=== PATIENT | female | born 1935 | race African-American/Black ===

== ENCOUNTER 2016-08-09 09:59 | Inpatient (IN) ==
[2016-08-09] MEDS ORDERED: PANTOPRAZOLE 40 MG VIAL IV STA (10:30)
[2016-08-09] MEDS ORDERED: SODIUM CHLORIDE 0.9% 500 ML IV STA (10:30)
--- NOTE | 2016-08-09 10:33 | EKG Report ---
Stationary ECG Study [facility] ER Test Date: 08/09/2016 10:15:29 AM Pat Name: FAINA ALONZO Department: Room: Gender: F Pit Inspector: : [id number] Requested by: Laith Gale Order Number: [id number] Reading MD: JOHN OWENS Intervals [place] Rate: 106 P: 67 NC: 169 QRS: -13 QRSD: 83 T: -5 QT: 350 QTc: 412 Interpretive Statements SINUS TACHYCARDIA WITH OCCASIONAL VENTRICULAR PREMATURE COMPLEXES NONSPECIFIC T-WAVE ABNORMALITY ABNORMAL RHYTHM ECG Electronically Signed On 08-09-16 12:25:18 TABLE OPERATOR by JOHN OWENS [email or web address]
[2016-08-09 10:48] LABS: Basophils % 0.9 % (0.0-0.8); Eosinophils % 0.9 % (0.00-10.9); Hematocrit 35.6 VOL% (35.7-47.0); Hemoglobin 10.9 GM/DL (12.0-16.0); Lymphocytes # 1.3 10*3/uL (1.4-4.0); Lymphocytes % 28.8 % (21.3-54.2); Mean Corpuscular HGB Conc 30.6 GM/DL (32-36); Mean Corpuscular Hemoglobin 26 PG (27-34); Mean Corpuscular Volume 86.2 FL (87-102); Mean Platelet Volume 10.8 FL (9.6-12.0); Monocytes # 0.4 10*3/uL (0.11-0.8); Monocytes % 8.2 % (1.7-12.7); Neutrophils # 2.7 10*3/uL (1.4-7.4); Neutrophils % 61.2 % (38.7-73.9); Platelet Count 254 10*3/uL (130-400); Red Blood Count 4.13 10*6/uL (3.8-5.5); Red Cell Distribution Width 13.3 % (9.3-17.3); White Blood Count 4.4 10*3/uL (4.5-13.71)
[2016-08-09] MEDS ORDERED: PANTOPRAZOLE 40 MG VIAL IV ONE (10:51)
--- NOTE | 2016-08-09 11:07 | XRay Report ---
XR abdomen 2V Indication: Abdominal pain. Abdomen 3 views: Left ESTELLA noted. Increased stool is present in the colon, without small bowel dilatation. Vascular calcinosis and degenerative scoliosis of the lumbar spine present. Impression: Mild constipation. No obstruction. PROCEDURE INTERPRETED AT [facility] DEPARTMENT OF RADIOLOGY Final Report Signed by: Jad Arce M.D.
--- NOTE | 2016-08-09 11:08 | XRay Report ---
XR chest 2V Indication: Shortness of breath. Chest 2 views: Biphasic thoracal lumbar scoliosis noted. Heart size is normal. Mediastinal contours unremarkable. No discrete infiltrate shown. Pleural spaces are clear. Degenerative changes of the thoracic spine the lateral view are significant. Impression: No acute cardio pulmonary disease. Degenerative changes and scoliosis of thoracolumbar spine. PROCEDURE INTERPRETED AT [facility] DEPARTMENT OF RADIOLOGY Final Report Signed by: Jad Arce M.D.
--- NOTE | 2016-08-09 11:17 | Emergency Department Note ---
Alex Costello Meredith, am scribing for, and in the presence of, Laith Holland MD 10:25. Amalia Costello Phillip K, MD, personally performed the services described in this documentation, ascribed by Johana Johnson in my presence, and it is both accurate and complete . Arrival - Arrival Chief Complaint: Syncope Stated Complaint: FELL AND PASSED OUT ED Nursing Triage Note: c/o near syncopal episode at approx 0900am. Reports was outside became dizzy and then fell onto ground. c/o mid-abdominal pain after fall. AAO x 3, speech clear. Mode of Arrival: Ambulatory Limitations: No Limitations Source: Patient, Old Records Reviewed, RN Notes Reviewed - History of Present Illness HPI Narrative: Pt is a 80 y/o black female reporting to the ED with c/o near-syncopal episode at approximately 0900. She was outside when she became lightheaded and fell to the ground. Pt states she also had one episode of rectal bleeding this morning. She confirms some mid-abdominal pain. Pt has a history of HTN, NIDDM, hemorrhoids, and ovarian cysts. She takes a low dose ASA daily. Female upper lining cementer was present during rectal exam. Onset (ago): hour(s) Consistency: now resolved Date of Last Menstrual Period: hyst Allergies/Adverse Reactions: Allergies Allergy/AdvReac Type Severity Reaction Status Date / Time No Known Allergies Allergy Verified 08/09/16 10:05 Home Medications: Home Medications Medication Instructions Recorded Confirmed Type Aspirin EC Tab 81 mg PO DAILY 01/21/15 08/09/16 History Losartan/Hydrochlorothiazide 1 each PO DAILY 01/21/15 08/09/16 History [Losartan-Hctz 50-12.5 mg Tab] Multivit-Min/FA/Lycopene/Lut 1 each PO DAILY 01/21/15 08/09/16 History [Centrum Silver Tablet] metFORMIN [Glucophage] 500 mg PO TID 01/21/15 08/09/16 History Review of System - Review of System 12 point system: reviewed and no additional remarkable complaints except as stated - Review of System Cardiovascular: Present: as per HPI, syncope (near-syncope) Gastrointestinal: Present: as per HPI, abdominal pain, other (rectal bleeding ) Medical,Surgical,& Family Hx - Medical History Cardio: History of: Hypertension Neurology: No history of: Seizures HEENT: History of: Eye Problem (GLASSES) Endocrine: History of: Diabetes Mellitus (NIDDM) (METFORMIN) Gastrointestinal: History of: Hemorrhoids Musculoskeletal: History of: Musculoskeletal Problems (RIGHT KNEE) Reproductive: History of: Ovarian Cysts - Surgical History Abdominal Surgeries: Patient denies: Abdominal Surgery, Appendectomy, Cholecystectomy Reproductive Surgeries: Surgical HX of;: Hysterectomy (1984) Orthopedic Surgeries: Surgical HX of;: Total Hip Replacement (LEFT HIP REPLACEMENT), Total Knee Replacement (RIGHT TOTAL KNEE REPLACEMENT) - Family History Family History: Reports;: Family Cancer (2 DAUGHTERS) - Social History Smoking Status: Never smoker Frequency of Alcohol Use: None Type of Drug Use: None Exam Vital Signs: Vital Signs Temperature 97.7 F 08/09/16 10:01 Pulse Rate 102 H 08/09/16 10:01 Respiratory Rate 18 08/09/16 10:20 Blood Pressure 144/101 08/09/16 10:01 O2 Sat by Pulse Oximetry 96 08/09/16 10:01 - General General appearance: alert, in no apparent distress - Head Head exam: Present: atraumatic, normocephalic - Eye Eye exam: Present: normal appearance, PERRL, EOMI - ENT ENT exam: Present: mucous membranes moist, normal external ear exam - Neck Neck exam: Present: full ROM, trachea midline. Absent: tenderness, meningismus , lymphadenopathy, thyromegaly - Chest Chest inspection: Present: symmetric chest wall rise. Absent: tenderness, rash - Respiratory Respiratory exam: Present: normal lung sounds bilaterally. Absent: respiratory distress - Cardiovascular Cardiovascular exam: Present: normal rhythm, tachycardia - Abdominal Exam Abdominal exam: Present: soft, normal bowel sounds. Absent: distention, tenderness - Rectal Exam Rectal exam: Present: heme (+) stool (gross blood on exam), hemorrhoids (one irritated hemorrhoid; blood found up past the hemorrhoid) - Extremities Exam Extremities exam: Present: full ROM, normal capillary refill. Absent: tenderness, pedal edema, calf tenderness - Back Exam Back exam: Present: full ROM. Absent: tenderness - Neurological Exam Neurological exam: Present: alert, oriented X3, CN II-XII intact. Absent: motor sensory deficit - Psychiatric Psychiatric exam: Present: normal affect, normal mood - Skin Skin exam: Present: warm, dry, intact, normal color Course Course Narrative: Discussed with the hospitalist. We will admit for further evaluation and GI consult. Results - Labs CBC & BMP: 08/09/16 10:34 Lab Results: I have reviewed the patients labs Labs: Laboratory Tests 08/09/16 10:34 WBC 4.4 L RBC 4.13 Hgb 10.9 L Hct 35.6 L MCV 86.2 L MCH 26 L MCHC 30.6 L Baso % (Auto) 0.9 H Lymph # (Auto) 1.3 L - EKG EKG results: interpreted by MAREK (sinus tachycardia with occasional PVCs and nonspecific ST-T changes.) - Diagnostic Findings Procedure: Abdominal x-ray: report reviewed by me (Mild constipation. No obstruction. ), Chest x-ray: report reviewed by me (No acute cardiopulmonary disease. Degenerative changes and scoliosis of thoracolumbar spine. ) Disposition Clinical Impression: Near syncope, Lower GI hemorrhage Case discussed with: patient Disposition: Still a Patient Condition: Guarded Additional Instructions: Admitted to the hospitalist.
[2016-08-09 11:18] LABS: Albumin 3.5 G/DL (3.4-5.0); Bilirubin,Total 0.5 MG/DL (0.2-1.0); Calcium 9.4 MG/DL (8.5-10.1); Magnesium 1.9 MG/DL (1.8-2.4); Osmolality,Calculated 298.7 MOS/KG (273-304); Potassium 3.7 MMOL/L (3.5-5.1)
[2016-08-09] MEDS ORDERED: GLUCAGON 1 MG VIAL IM PRN (11:42)
[2016-08-09] MEDS ORDERED: ZALEPLON 5 MG CAPSULE PO PRN (11:42)
[2016-08-09] MEDS ORDERED: DEXTROSE 50% 25 GM/50 ML VIAL IV PRN (11:42)
[2016-08-09] MEDS ORDERED: BISACODYL 5 MG TABLET PO PRN (11:42)
[2016-08-09] MEDS ORDERED: ONDANSETRON 4 MG/2 ML VIAL IV PRN (11:42)
[2016-08-09] MEDS ORDERED: ACETAMINOPHEN 325 MG TABLET PO PRN (11:42)
--- NOTE | 2016-08-09 11:54 | Hospitalist History & Physical ---
Assessment and Plan (1) Lower gastrointestinal hemorrhage Status: Acute Assessment and plan: Painless without formed elements, recurrent at wide intervals Current Visit: Yes (2) Pre-syncope Status: Chronic Assessment and plan: Repetitive upright episodes over several years Current Visit: Yes History of Present Illness History of present illness: Ms. Jackson is a 80 year old female this morning at approximately 05:00 went to bathroom to void. Had flatus, voided and upon standing bright red blood in commode. No stool, clots, no pain. Has history of unevaluated episodes of same most recently in January 2015. 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 She has had similar episodes previously without defined source. No bowel movement since initial this morning. Home Medications Medication Instructions Recorded Confirmed Type Aspirin EC Tab 81 mg PO DAILY 01/21/15 08/09/16 History Losartan/Hydrochlorothiazide 1 each PO DAILY 01/21/15 08/09/16 History [Losartan-Hctz 50-12.5 mg Tab] Multivit-Min/FA/Lycopene/Lut 1 each PO DAILY 01/21/15 08/09/16 History [Centrum Silver Tablet] metFORMIN [Glucophage] 500 mg PO TID 01/21/15 08/09/16 History Allergies Allergy/AdvReac Type Severity Reaction Status Date / Time No Known Allergies Allergy Verified 08/09/16 10:05 Medical,Surgical,& Family Hx - Medical History Cardio: History of: Hypertension (10 years) Neurology: No history of: Seizures HEENT: History of: Eye Problem (GLASSES) Endocrine: History of: Diabetes Mellitus (NIDDM) (10 years) Gastrointestinal: History of: Hemorrhoids Hematology: History of: Anemia (hemoglobin 01/2015 9.2) Reproductive: History of: Ovarian Cysts - Surgical History Abdominal Surgeries: Surgical HX of: Abdominal Surgery, Appendectomy, Cholecystectomy Reproductive Surgeries: Surgical HX of;: Hysterectomy (1984) Orthopedic Surgeries: Surgical HX of;: Total Hip Replacement (LEFT HIP REPLACEMENT), Total Knee Replacement (RIGHT TOTAL KNEE REPLACEMENT) - Family History Family History: Reports;: Family Cancer (2 DAUGHTERS) - Social History Smoking Status: Never smoker Frequency of Alcohol Use: None Type of Drug Use: None - Constitutional Constitutional: Absent: frequent falls, weakness - Cardiovascular Cardiovascular: Present: lightheadedness. Absent: chest pain with activity, claudication, edema, palpitations - Respiratory Respiratory: Absent: dyspnea, wheezing - Gastrointestinal Gastrointestinal: Present: hematochezia. Absent: abdominal pain, change in bowel habits, constipation, dysphagia, heartburn, melena, nausea - Genitourinary Genitourinary: Absent: difficulty urinating, hematuria - Musculoskeletal Musculoskeletal: Present: muscle cramps - Neurological Neurological: Present: syncope (recurrent near syncopal episodes) Exam - Constitutional Vitals: Period Temp Pulse Resp BP Sys/Carlton Pulse Ox Last 24 Hr 97.7 F 102 18-18 144/101 96 General appearance: normal weight - Head Head exam: Present: normal inspection - Neck Neck exam: Absent: lymphadenopathy, thyromegaly - Respiratory Respiratory exam: Present: clear to auscultation bilaterally. Absent: rales, rhonchi, wheezes - Cardiovascular Cardiovascular exam: Present: irregular rhythm (VPC), other (low frequency carotid and femoral bruits with decreased left lower leg pulses) - GI/Abdominal GI/Abdominal exam: Present: normal bowel sounds. Absent: organomegaly, tenderness - Extremities Exam Extremities exam: Absent: edema - Neurological Exam Neurological exam: Present: alert, oriented X3 - Psychiatric Psychiatric exam: Present: normal affect, normal mood Results - Labs CBC & BMP: 08/09/16 10:34 08/09/16 10:34 - Impressions Sinus with VPC clockwise precordial rotation - Diagnostic Findings Procedure: Chest x-ray: image reviewed by me (scoliosis, clear lung wilson), KUB x-ray: image reviewed by me (negative) Quality Measures - VTE Contraindication to Pharmacological VTE Prophylaxis: Active Bleeding
[2016-08-09] MEDS ORDERED: INFLUENZA VIRUS VACCINE 0.5 ML SYRINGE IM ONE (13:46)
[2016-08-09] MEDS ORDERED: PNEUMOCOCCAL VACCINE (13 VALENT) 0.5 ML SYRINGE IM ONE (13:50)
[2016-08-09] MEDS: LOSARTAN 50 MG TABLET PO SCH (15:06)
[2016-08-09] MEDS: PANTOPRAZOLE 40 MG TABLET PO SCH (15:06)
[2016-08-09] MEDS: LACTATED RINGERS 1,000 ML IV SCH (15:06)
--- NOTE | 2016-08-09 17:43 | Gastrointestinal Consult Note ---
Assessment and Plan (1) Lower gastrointestinal hemorrhage Status: Acute Assessment and plan: This patient likely has a diverticular bleed versus hemorrhoidal bleeding. Her hematocrit has only dropped down to 35% but it appears that it will continue to drift downward. I doubt ischemic colitis as patient did not have a requisite amount of cramping usually associated with this etiology. Unfortunately cancers still in the differential and she has a daughter with history of same and she has never been evaluated with colonoscopy up to this point. She will need to be flushed out appropriately before we can evaluate her for this cancer/ diverticular bleeding. She will may be on a clear liquid diet tomorrow with MiraLAX prep. We'll continue watching her hematocrit over time. She really does not have any upper symptoms at this time but if we do not find any significant findings on colonoscopy with might consider doing a upper endoscopy to look for tisha ulcerations or bleeding source. Current Visit: Yes (2) Anemia, posthemorrhagic, acute Status: Acute Assessment and plan: As mentioned above over continue to watch the patient's CBC for hematocrit drift and I will plan on transfusing her if her hematocrit drops below 24%. Currently she is a 35%. Parameters written. Risks of the endoscopy were reviewed with the patient and include but aren't limited to: Bleeding, infection , perforation, cardiac and pulmonary compromise. Current Visit: Yes History of Present Illness Chief complaint: lower GI bleed with near syncope History of present illness: Ms. Jackson is a 80 year old female who has a daughter who has a history of colon cancer but has never had colonoscopy herself. She presents early this morning with voluminous rectal bleeding which she describes as maroon red, no particular cramping associated with this and no fevers or chills. 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 She did not completely fainted during that episode. She did not hit anybody parts. She does not have any abdominal pain, she had a previous episode of this occurring back in January 2015. She has not had upper endoscopy. She uses occasional Aleve to help out with her abdominal pain/joint pains. She does not have any reflux nausea or vomiting. She has eaten all today and therefore cannot be prepped for colonoscopy tomorrow. Home Medications Medication Instructions Recorded Confirmed Type Aspirin EC Tab 81 mg PO DAILY 07/01/15 01/17/17 History Losartan/Hydrochlorothiazide 1 each PO DAILY 01/21/15 08/09/16 History [Losartan-Hctz 50-12.5 mg Tab] Multivit-Min/FA/Lycopene/Lut 1 each PO DAILY 01/21/15 08/09/16 History [Centrum Silver Tablet] metFORMIN [Glucophage] 500 mg PO TID 01/21/15 08/09/16 History Allergies Allergy/AdvReac Type Severity Reaction Status Date / Time No Known Allergies Allergy Verified 08/09/16 10:05 Medical,Surgical,& Family Hx - Medical History Cardio: History of: Hypertension (10 years) Neurology: No history of: Seizures HEENT: History of: Eye Problem (GLASSES) Endocrine: History of: Diabetes Mellitus (NIDDM) (10 years) Gastrointestinal: History of: Hemorrhoids Musculoskeletal: History of: Musculoskeletal Problems (RIGHT KNEE) Hematology: History of: Anemia (hemoglobin 01/2015 9.2) Reproductive: History of: Ovarian Cysts - Surgical History Abdominal Surgeries: Patient denies: Abdominal Surgery, Appendectomy, Cholecystectomy Reproductive Surgeries: Surgical HX of;: Hysterectomy (1984) Orthopedic Surgeries: Surgical HX of;: Total Hip Replacement (LEFT HIP REPLACEMENT), Total Knee Replacement (RIGHT TOTAL KNEE REPLACEMENT) - Family History Family History: Reports;: Family Cancer (2 DAUGHTERS) - Social History Smoking Status: Never smoker Frequency of Alcohol Use: None Type of Drug Use: None Review of systems: Constitutional: Denies fever, chills, nausea, and vomiting Eyes: Denies dry eyes, and scleral icterus HENT: Denies headaches Cardiovascular: Denies acute chest pain and claudication Respiratory: Denies shortness of breath, wheezing, and difficulty breathing, denies cough Gastrointestinal: As noted in the HPI Genitourinary: Denies dysuria and hematuria Neurologic: Denies vision loss, and loss of sensation Musculoskeletal: Denies joint swelling, joint stiffness, and muscular weakness Psychiatric: Denies depression and barb symptoms Heme-Lymph: Denies easy bruising, lymph node enlargement or tenderness, night sweats, excessive bleeding Allergies-immunologic: Denies pruritus and rhinorrhea Exam - Constitutional Vitals: Period Temp Pulse Resp BP Sys/Carlton Pulse Ox Last 24 Hr 96.6 F-98.3 F 86-89 18-20 137-168/79-85 97-100 Exam: Constitutional: Well-developed, well-nourished, alert, and in no acute distress Head and face: Head: Normocephalic atraumatic Eyes: Conjunctiva without injection, no gross scleral icterus, pupils equal and round bilaterally Ears: Intact to conversation in both ears Nose: External appearance is normal, nares patent Mouth: Oral mucous membranes moist without erythema dentition noted to be without erosion Neck: Normal appearance, no masses or tenderness, trachea midline Thyroid: Gland midline and appropriate size for age Respiratory: Normal respiratory effort, clear to auscultation without wheezes, rhonchi or rales Cardiovascular: Regular rate and rhythm, normal S1, S2, the exam is without rubs, murmurs or gallops. Gastrointestinal: Nontender to palpation, normal active bowel sounds, tone normal without rigidity or guarding, no masses present, no hepatomegaly, no spleen tip felt. Stool demonstrates grossly maroon stool which was guaiac positive. Lymphatic: Neck without adenopathy, axilla without lymphadenopathy present Musculoskeletal: Right and left lower extremities without evidence of edema Skin and subcutaneous tissue: No rashes or ulcerations noted, normal skin turgor, digits and nails without clubbing/cyanosis/deformities. Neurologic: The patient is grossly oriented to person place and time, cranial nerves show tongue movements are normal with normal tongue extrusion midline, light touch sensation is intact. Psychiatric: No hallucinations or delusions are present, does not appear depressed Results - Labs CBC & BMP: 08/09/16 13:23 08/09/16 10:34 Quality Measures - VTE Contraindication to Pharmacological VTE Prophylaxis: Active Bleeding
[2016-08-09] MEDS ORDERED: SODIUM CHLORIDE 0.9% 250 ML IV PRN (17:50)
[2016-08-09] MEDS: INSULIN REGULAR 100 UNIT/ML SUBCUT SCH ×2 (18:44→20:31)
[2016-08-09 18:52] LABS: Hematocrit 29.8 VOL% (35.7-47.0); Hemoglobin 9.2 GM/DL (12.0-16.0)
[2016-08-10] MEDS: LACTATED RINGERS 1,000 ML IV SCH ×2 (04:51→20:33)
[2016-08-10 04:55] LABS: Basophils % 0.8 % (0.0-0.8); Eosinophils # 0.2 10*3/uL (0.0-0.87); Eosinophils % 3.3 % (0.00-10.9); Hematocrit 27.6 VOL% (35.7-47.0); Hemoglobin 8.3 GM/DL (12.0-16.0); Immature Granulocytes % 0.2 %; Immature Granulocytes Absolute 0.01 #; Lymphocytes # 2.2 10*3/uL (1.4-4.0); Lymphocytes % 44.9 % (21.3-54.2); Mean Corpuscular HGB Conc 30.1 GM/DL (32-36); Mean Corpuscular Hemoglobin 26 PG (27-34); Mean Corpuscular Volume 85.2 FL (87-102); Mean Platelet Volume 11.6 FL (9.6-12.0); Monocytes # 0.5 10*3/uL (0.11-0.8); Monocytes % 10.2 % (1.7-12.7); Neutrophils % 40.6 % (38.7-73.9); Platelet Count 207 10*3/uL (130-400); Red Blood Count 3.24 10*6/uL (3.8-5.5); Red Cell Distribution Width 13.5 % (9.3-17.3); White Blood Count 4.9 10*3/uL (4.5-13.71)
[2016-08-10 05:32] LABS: Calcium 7.2 MG/DL (8.5-10.1); Osmolality,Calculated 300.9 MOS/KG (273-304); Potassium 3.6 MMOL/L (3.5-5.1)
[2016-08-10 06:40] LABS: Apearance,Urine Slightly Hazy (Clear); Bilirubin,Urine Negative (Negative); Blood, Urine Negative (Negative); Glucose,Urine (UA) Negative (Negative); Hyaline Casts,Urine 1 /LPF (0-3); Ketones,Urine Negative (Negative); Mucus,Urine Few /LPF (Occasional); Nitrite,Urine Negative (Negative); Protein,Urine Negative; RBC,Urine <1 /HPF (0-4); Squamous Epithelial Cell,Urine Occasional /HPF (0-10); Urine Color Yellow (Yellow); Urine Specific Gravity 1.024 (1.001-1.035); Urine Urobilinogen < 2.0 EU/DL (0.2-1.0); WBC,Urine 2 /HPF (0-6)
--- NOTE | 2016-08-10 06:45 | Hospitalist Progress Note ---
Assessment and Plan (1) Lower gastrointestinal hemorrhage Status: Acute Assessment and plan: Painless without formed elements, recurrent at wide intervals Current Visit: Yes (2) Pre-syncope Status: Chronic Assessment and plan: Repetitive upright episodes over several years Current Visit: Yes Hospitalist: Subjective Interval history: 80 yo female chronic widely distributed episodes of painless hematochezia with episode yesterday. Also history of separate episodes of near syncope with isolated VPC at admission. Single bowel movement since admission, formed with small amount of blood. Vitals stable overnight with gradual fall in hemoglobin overnight. Rhythm sinus throughout. Exam - Constitutional Vitals: Period Temp Pulse Resp BP Sys/Carlton Pulse Ox Last 24 Hr 96.6 F-100.1 F 65-89 18-20 137-179/71-85 96-100 General appearance: normal weight - Respiratory Respiratory exam: Present: clear to auscultation bilaterally. Absent: rales, rhonchi, wheezes - Cardiovascular Cardiovascular exam: Present: regular rate and rhythm - GI/Abdominal GI/Abdominal exam: Present: normal bowel sounds. Absent: distended, tenderness - Extremities Exam Extremities exam: Absent: edema - Neurological Exam Neurological exam: Present: alert, oriented X3 Results - Labs CBC & BMP: 08/10/16 03:51 08/10/16 03:51 Quality Measures - VTE Contraindication to Pharmacological VTE Prophylaxis: Active Bleeding
[2016-08-10 07:14] LABS: % Iron Saturation 55.3 % (18-50)
[2016-08-10] MEDS: BISACODYL 5 MG TABLET PO SCH ×3 (09:26→22:33)
[2016-08-10] MEDS: PANTOPRAZOLE 40 MG TABLET PO SCH (09:27)
[2016-08-10] MEDS: LOSARTAN 50 MG TABLET PO SCH (09:27)
[2016-08-10] MEDS: INSULIN REGULAR 100 UNIT/ML SUBCUT SCH ×4 (09:32→20:26)
--- NOTE | 2016-08-10 15:29 | Gastrointestinal Progress Note ---
Assessment and Plan (1) Lower gastrointestinal hemorrhage Status: Acute Assessment and plan: This patient likely has a diverticular bleed versus hemorrhoidal bleeding. Her hematocrit has only dropped down to 35% but it appears that it will continue to drift downward. I doubt ischemic colitis as patient did not have a requisite amount of cramping usually associated with this etiology. Unfortunately cancer is still in the differential and she has a daughter with history of same and she has never been evaluated with colonoscopy up to this point. She will need to be flushed out appropriately before we can evaluate her for this cancer/ diverticular bleeding. She will may be on a clear liquid diet tomorrow with MiraLAX prep. We'll continue watching her hematocrit over time. She really does not have any upper symptoms at this time but if we do not find any significant findings on colonoscopy with might consider doing a upper endoscopy to look for tisha ulcerations or bleeding source. 08/10/16-- Awaiting colonoscopy tomorrow, currently on clears, about to start prep in near future. HCT 35-->29.8 --> 27.6% most recently. Suspect diverticular source. Current Visit: Yes (2) Anemia, posthemorrhagic, acute Status: Acute Assessment and plan: As mentioned above over continue to watch the patient's CBC for hematocrit drift and I will plan on transfusing her if her hematocrit drops below 24%. Currently she is a 35%. Parameters written. Risks of the endoscopy were reviewed with the patient and include but aren't limited to: Bleeding, infection , perforation, cardiac and pulmonary compromise. 08/10/16-- The patient is getting closer to our transfusion parameters. Will plan to start transfusion if HCT < or = to 24%. Await colo results tomorrow. Current Visit: Yes Gastroenterology - PN: Subj Interval history: Taking clears without difficulty, due to get colonoscopy tomorrow. Exam (Progress Note) - Constitutional Vitals: Period Temp Pulse Resp BP Sys/Carlton Pulse Ox Last 24 Hr 97.8 F-100.1 F 65-86 20-20 140-179/71-85 95-98 General appearance: no acute distress - Head Head exam: Present: normocephalic - Eye Eye exam: Present: EOMI - Respiratory Respiratory exam: Present: clear to auscultation bilaterally - Cardiovascular Cardiovascular exam: Present: regular rate and rhythm. Absent: rubs - GI/Abdominal GI/Abdominal exam: Present: normal bowel sounds, soft. Absent: distended, guarding, tenderness, rebound - Extremities Exam Extremities exam: Absent: edema - Neurological Exam Neurological exam: Present: alert, oriented X3, CN II-XII intact. Absent: motor sensory deficit - Psychiatric Psychiatric exam: Present: normal affect, normal mood - Skin Skin exam: Present: warm Results - Labs CBC & BMP: 08/10/16 03:51 08/10/16 03:51
[2016-08-10] MEDS ORDERED: POLYETHYLENE GLYCOL POWDER 255 GM BOTTLE PO ONE (18:00)
[2016-08-10 18:06] LABS: Hemoglobin 9.4 GM/DL (12.0-16.0)
[2016-08-10] MEDS ORDERED: MAGNESIUM CITRATE 300 ML BOTTLE PO ONE (21:00)
[2016-08-11 05:10] LABS: Hematocrit 31.9 VOL% (35.7-47.0); Hemoglobin 9.7 GM/DL (12.0-16.0)
[2016-08-11 05:23] LABS: Basophils % 0.4 % (0.0-0.8); Eosinophils # 0.2 10*3/uL (0.0-0.87); Eosinophils % 3.4 % (0.00-10.9); Hematocrit 31.7 VOL% (35.7-47.0); Hemoglobin 9.7 GM/DL (12.0-16.0); Immature Granulocytes % 0.2 %; Immature Granulocytes Absolute 0.01 #; Lymphocytes # 2.1 10*3/uL (1.4-4.0); Lymphocytes % 37.1 % (21.3-54.2); Mean Corpuscular HGB Conc 30.6 GM/DL (32-36); Mean Corpuscular Hemoglobin 26 PG (27-34); Mean Corpuscular Volume 84.8 FL (87-102); Mean Platelet Volume 11.3 FL (9.6-12.0); Monocytes # 0.6 10*3/uL (0.11-0.8); Monocytes % 10.1 % (1.7-12.7); Neutrophils # 2.7 10*3/uL (1.4-7.4); Neutrophils % 48.8 % (38.7-73.9); Platelet Count 240 10*3/uL (130-400); Red Blood Count 3.74 10*6/uL (3.8-5.5); Red Cell Distribution Width 13.5 % (9.3-17.3); White Blood Count 5.6 10*3/uL (4.5-13.71)
--- NOTE | 2016-08-11 07:17 | Hospitalist Progress Note ---
Assessment and Plan (1) Lower gastrointestinal hemorrhage Status: Acute Assessment and plan: Painless without formed elements, recurrent at wide intervals Current Visit: Yes (2) Pre-syncope Status: Chronic Assessment and plan: Repetitive upright episodes over several years, documentation last evening of asymptomatic rapid atrial tachycardia. Current Visit: Yes Hospitalist: Subjective Interval history: 80 yo female history of painless hematochezia with recurrence at this admission. Also reported episodes of lightheadedness never evaluated and separate from bleeding episodes. Last evening episodes of rapid atrial tachycardia without symptoms. No blood noted during colonoscopy prep last evening. Hemoglobin stable. Exam - Constitutional Vitals: Period Temp Pulse Resp BP Sys/Carlton Pulse Ox Last 24 Hr 97.4 F-98.9 F 56-91 16-20 140-181/72-89 93-98 General appearance: normal weight - Respiratory Respiratory exam: Present: clear to auscultation bilaterally. Absent: rales, rhonchi, wheezes - GI/Abdominal GI/Abdominal exam: Present: normal bowel sounds. Absent: tenderness - Neurological Exam Neurological exam: Present: alert, oriented X3 Results - Labs CBC & BMP: 08/11/16 04:19 08/10/16 03:51 Quality Measures - VTE Contraindication to Pharmacological VTE Prophylaxis: Active Bleeding
[2016-08-11] MEDS ORDERED: LIDOCAINE 2% 5 ML VIAL ONE (08:41)
[2016-08-11] MEDS ORDERED: PROPOFOL 200 MG/20 ML VIAL IV ONE (08:41)
--- NOTE | 2016-08-11 09:00 | Operative Note ---
Date of procedure: 08/11/16 Pre-op diagnosis: lower GI bleed and anemia Post-op diagnosis: other (I strong suspect this patient had a diverticular bleed from the right colon, if further bleeding occurs we can consider doing upper endoscopy in addition. If the patient returns again acutely would strongly suggest getting a tagged red blood cell scan to see if the bleeding can be localized one area. The patient demonstrated some tachycardia during the procedure consistent with SVT, cardiac consultation may be helpful.) Procedure: PROCEDURE: Colonoscopy REFERRING PHYSICIAN: Gordo De La Cruz M.D. INDICATIONS: Anemia with hematocrit of 31% and lower GI bleeding of unclear source. Rule out cancer. The prior H&P was reviewed and interrim changes are as noted: No change for GI consultation yesterday ENDOSCOPIST: Giovany Maldonado MD ENDOSCOPE: [employer] Video 100 System colonoscope COLON PREPARATION: 238 gm of PEG containing laxative and 1.9 liters of gatoraid/sports drink and dulcolax 15 mg q8 hours x 3 ASA CLASS: 3 EXAM: CV: regular rate and rhythm Respiratory: Clear without wheezes Abdominal: active bowel sounds Rectal: Good tone, no fissures or fistulas MEDICATION: Per nursing anesthesia protocol, see their notes PROCEDURE: After discussion of the potential risks and benefits of colonoscopy, the informed consent was obtained, from patient or health care surrogate. The patient was then placed in the left lateral decubitus position where sedation was achieved as noted above. Rectal examination was followed by insertion of the colonoscope. The colonoscope was passed under direct visualization to the cecum. Advancement was facilitated by insertion/withdrawl techniques, abdominal pressure and patient positioning. Once the cecal pole was reached, slow withdrawal was performed with the findings as noted below. The patient tolerated the procedure well and without complication. QUALITY OF PREP: Excellent WITHDRAWL TIME: 7 minutes 45 seconds BIOPSIES: Not obtained PHOTOGRAPHS: Obtained FINDINGS: The musoca appeared normal in the following regions: rectum, sigmoid colon, descending colon, splenic flexure, transverse colon, hepatic flexure, ascending colon and cecum. Position within the cecum was confirmed by ileocecal valve, appendiceal oriface, and the convergence of folds (crows foot) . No colitis, polyp, mass or AVM was noted throughout the colon. Heavy moore- diverticulosis noted, this was most severe in the right colon. Intubation of the TI was achieved x 5 cm with normal appearence IMPRESSION: I strong suspect this patient had a diverticular bleed from the right colon, if further bleeding occurs we can consider doing upper endoscopy in addition. If the patient returns again acutely would strongly suggest getting a tagged red blood cell scan to see if the bleeding can be localized one area. The patient demonstrated some tachycardia during the procedure consistent with SVT, cardiac consultation may be helpful. RECOMMENDATIONS: High fiber diet Repeat colonosocopy in 10 years given the lack of polyps and cancer. Citrucel 1 tablespoon in 12 oz juice BID: 1 bottle: :11 SVT noted during the procedure, cardiac consultation may be helpful for this patient given her arrhythmia history Follow up by phone for biopsy results in 1-2 weeks by phone If further bleeding occurs with suggest upper endoscopy. Giovany Maldonado MD COPY TO: Gordo De La Cruz M.D. Anesthesia: MAC Surgeon / Physician: Giovany Maldonado Estimated blood loss: minimal Specimens: none sent Condition: stable Disposition: post procedure unit ([facility]) Results - Labs CBC & BMP: 08/11/16 04:19 08/10/16 03:51 Discharge Plan - Discharge Medications No Action Losartan/Hydrochlorothiazide [Losartan-Hctz 50-12.5 mg Tab] 1 each PO DAILY metFORMIN [Glucophage] 500 mg PO TID Aspirin EC Tab 81 mg PO DAILY Multivit-Min/FA/Lycopene/Lut [Centrum Silver Tablet] 1 each PO DAILY - Follow Up or Referral - Forms/Instructions
--- NOTE | 2016-08-11 09:04 | Gastrointestinal Progress Note ---
Assessment and Plan (1) Lower gastrointestinal hemorrhage Status: Acute Assessment and plan: This patient likely has a diverticular bleed versus hemorrhoidal bleeding. Her hematocrit has only dropped down to 35% but it appears that it will continue to drift downward. I doubt ischemic colitis as patient did not have a requisite amount of cramping usually associated with this etiology. Unfortunately cancer is still in the differential and she has a daughter with history of same and she has never been evaluated with colonoscopy up to this point. She will need to be flushed out appropriately before we can evaluate her for this cancer/ diverticular bleeding. She will may be on a clear liquid diet tomorrow with MiraLAX prep. We'll continue watching her hematocrit over time. She really does not have any upper symptoms at this time but if we do not find any significant findings on colonoscopy with might consider doing a upper endoscopy to look for tisha ulcerations or bleeding source. 08/10/16-- Awaiting colonoscopy tomorrow, currently on clears, about to start prep in near future. HCT 35-->29.8 --> 27.6% most recently. Suspect diverticular source. 08/11/16--the patient had her colonoscopy this morning and her hematocrit appears stable without transfusion now up to 31%.: Findings were as follows: I strong suspect this patient had a diverticular bleed from the right colon, if further bleeding occurs we can consider doing upper endoscopy in addition. If the patient returns again acutely would strongly suggest getting a tagged red blood cell scan to see if the bleeding can be localized one area. The patient demonstrated some tachycardia during the procedure consistent with SVT, cardiac consultation may be helpful. packaging tech also describes arrhythmias over the evening times-- patient by report appeared normal on nursing check. Current Visit: Yes (2) Anemia, posthemorrhagic, acute Status: Acute Assessment and plan: As mentioned above over continue to watch the patient's CBC for hematocrit drift and I will plan on transfusing her if her hematocrit drops below 24%. Currently she is a 35%. Parameters written. Risks of the endoscopy were reviewed with the patient and include but aren't limited to: Bleeding, infection , perforation, cardiac and pulmonary compromise. 08/10/16-- The patient is getting closer to our transfusion parameters. Will plan to start transfusion if HCT < or = to 24%. Await colo results tomorrow. 08/11/16--no ongoing bleeding demonstrated on colonoscopy, the patient did not require transfusion, she is stable at this point he can be discharged from the hospital if she tolerates a cardiac diet and does not need further Cardiologic workup. Current Visit: Yes Gastroenterology - PN: Subj Interval history: Further bleeding with bowel prep. Hematocrit 31% this morning and is stable. Exam (Progress Note) - Constitutional Vitals: Period Temp Pulse Resp BP Sys/Carlton Pulse Ox Last 24 Hr 97.4 F-98.9 F 56-91 16-20 140-181/72-89 93-98 General appearance: no acute distress - Eye Eye exam: Present: EOMI - Respiratory Respiratory exam: Present: clear to auscultation bilaterally - Cardiovascular Cardiovascular exam: Present: regular rate and rhythm - GI/Abdominal GI/Abdominal exam: Present: normal bowel sounds, soft. Absent: distended, guarding, tenderness, rebound - Neurological Exam Neurological exam: Present: alert, oriented X3 - Psychiatric Psychiatric exam: Present: normal affect, normal mood - Skin Skin exam: Present: warm Results - Labs CBC & BMP: 08/11/16 04:19 08/10/16 03:51
[2016-08-11] MEDS: INSULIN REGULAR 100 UNIT/ML SUBCUT SCH ×4 (10:14→21:54)
[2016-08-11] MEDS: PANTOPRAZOLE 40 MG TABLET PO SCH (10:24)
[2016-08-11] MEDS: LOSARTAN 50 MG TABLET PO SCH (10:25)
[2016-08-11] MEDS: LACTATED RINGERS 1,000 ML IV SCH (16:46)
--- NOTE | 2016-08-11 17:27 | Cardiology Consult Note ---
Parker Costello Vanessa, RN, am scribing for, and in the presence of, Miguel Angel Vasquez MD 17:26. Assessment and Plan - Time spent with patient Time spent with patient: Greater than 30 minutes (due to assessment, planning, documentation) (1) Atrial arrhythmia Status: Acute Assessment and plan: 1. 80-year-old moderately overweight BF with history of hypertension, diabetes , who presented with some bright red blood per rectum status post scope today showing diverticulosis; she is not had any further bleeding this afternoon. She 's had a couple of episodes of short tachycardia, most consistent with paroxysmal atrial fibrillation with aberrancy, with rate over 150 BPM 2. No history of TIA stroke or presyncope; she did have one modest episode of orthostasis in the last several days, no symptoms associated with her documented runs on telemetry oh (less than 10 seconds) 3. Check echocardiogram in the morning to evaluate for structural heart disease 4. Check TSH as well as electrolytes in the morning 5. Start low-dose beta maryam Toprol 25 mg once twice a day Current Visit: Yes (2) Pre-syncope Status: Chronic Current Visit: Yes (3) Diabetes mellitus type 2 in nonobese Status: Acute Current Visit: No (4) Hypertension Status: Acute Current Visit: No (5) Arthritis Status: Chronic Current Visit: No History of Present Illness - Data of Consult Patient: new to practice Consult date: 08/11/16 Requesting Physician: Gordo De La Cruz - Consult Narrative Reason for consult: atrial arrhythmia History of present illness: Ms. 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 PMHx includes anemia, HTN, NIDDM, hemorrhoids, and ovarian cysts. Denies any past cardiac history. She presented to the ER on 08/09/16 after experiencing an episode of bright red rectal bleeding that morning and later in the day, a near syncopal episode with mid abdominal pain also. Per patient report, she has had intermittent episodes of this before dating back to January 2015, but she has never sought out evaluation or treatment. Diagnostic workup in ER included XR of ABD, CXR, lab work, and EKG. ABD x-ray in ER revealed mild constipation with no obstruction. CXR negative for acute processes. EKG revealed sinus tachycardia, rate around 105 bpm with occasional PVC without ST segment changes. Labs revealed initial H/H of 10.9 & 35.6. Patient was admitted to telemetry for further observation and evaluation After admission, GI was consulted, and with downtrend of HCT to ultimately 27, patient had diagnostic colonoscopy this morning. Per Dr. Maldonado's note, diverticular bleed from right colon suspected. Endoscopy recommended for further bleeding and for acute lower GI bleed, tagged red blood cell scan. Apparently, during this procedure, patient had some tachy arrhythmia felt to be SVT. Cardiology is now consulted for evaluation. Upon further tele review, patient also experienced arrhythmia yesterday evening while she was using bathroom and again while she asleep last night. Rhythm strips reveal narrow complex tachycardia with rate around 140 bpm. Appears to be paroxysmal atrial tach. One strip suspicious for atrial fib. During these episodes, patient denies any associated symptoms such as palpitation, dizziness, lightheadedness, shortness of breath, chest discomfort, or other. Patient and family at bedside deny any history or knowledge of patient having abnormal rhythm. At time of exam , patient is pleasant and talkative. Denies any current discomfort or anginal complaint. Skin warm, dry. Denies PND, orthopnea, LE swelling, or hx of ML. CC: Gordo De La Cruz MD - Home Medications and Allergies Home Medications: Home Medications Medication Instructions Recorded Confirmed Type Aspirin EC Tab 81 mg PO DAILY 01/21/15 08/09/16 History Losartan/Hydrochlorothiazide 1 each PO DAILY 01/21/15 08/09/16 History [Losartan-Hctz 50-12.5 mg Tab] Multivit-Min/FA/Lycopene/Lut 1 each PO DAILY 01/21/15 08/09/16 History [Centrum Silver Tablet] metFORMIN [Glucophage] 500 mg PO TID 01/21/15 08/09/16 History Allergies/Adverse Reactions: Allergies Allergy/AdvReac Type Severity Reaction Status Date / Time No Known Allergies Allergy Verified 08/09/16 10:05 - Constitutional Constitutional: Present: fatigue. Absent: chills, daytime sleepiness, excessive sweating, fever(s), frequent falls, lethargy, stops breathing during sleep, weakness, weight gain, weight loss - EENT Eyes: Present: requires corrective lense. Absent: blurry vision Ears: Absent: decreased hearing, ear pain Nose, mouth and throat: Absent: dysphagia, epistaxis, nasal congestion, neck pain, sore throat, throat swelling, tongue swelling, vertigo - Cardiovascular Cardiovascular: Absent: chest pain at rest, chest pain with activity, claudication, diaphoresis, dyspnea, dyspnea on exertion, edema, radiating jaw, neck or arm pain, lightheadedness, orthopnea, palpitations, PND - Respiratory Respiratory: Absent: cough, dyspnea, hemoptysis, dyspnea on exertion, wheezing, snoring, pain on inspiration, change in phlegm color - Gastrointestinal Gastrointestinal: Absent: abdominal pain, cramping, dysphagia, heartburn, hematochezia, melena, nausea, vomiting, jaundice - Genitourinary Genitourinary: Absent: abnormal vaginal bleeding, difficulty urinating, flank pain, hematuria, urinary frequency - Musculoskeletal Musculoskeletal: Absent: myalgias - Neurological Neurological: Absent: abnormal speech, confusion, dizziness, frequent falls, tremor(s) - Psychiatric Psychiatric: Absent: anxiety, confusion, depression - Endocrine Endocrine: Absent: cold intolerance, heat intolerance - Hematologic/Lymphatic Hematologic/Lymphatic: Absent: easy bleeding, easy bruising Medical,Surgical,& Family Hx - Medical History Cardio: History of: Hypertension No history of: Cardiac Dysrhythmia, Cerebrovascular Disease, Congenital Heart Disease, CHF, ND, Pacemaker, Valvular Heart Disease Psychological: No history of: Anxiety Disorders, Depression Neurology: No history of: Cerebral Hemorrhage, Cerebrovascular Accident, Dementia, Migraine, Peripheral Neuropathy, Seizures, TIA, Vertigo HEENT: History of: Eye Problem (requires corrective lense) Endocrine: History of: Diabetes Mellitus (NIDDM) Rheumatology: No history of;: Fibromyalgia, Gout, Myasthenia Gravis Respiratory: No history of: Asthma, Bronchitis, COPD, Intubation, Obstructive Sleep Apnea , Pulmonary Embolism, Pulmonary Hypertension, Pneumonia, Lung Cancer Renal: No history of: Dialysis, Renal Failure Genitourinary: No history of: Recurring Urinary Tract Infections, Genitourinary Cancer Gastrointestinal: History of: Gastrointestinal Bleed, Hemorrhoids, Hematochezia No history of: Crohn's Disease, GERD, Hepatitis, Liver Problems, Ulcerative Colitis, Gastrointestinal Cancer Musculoskeletal: History of: Musculoskeletal Problems No history of: Amputation, Degenerative Disk Disease Hematology: History of: Anemia No history of: Blood Transfusion Reaction, Sickle Cell Disease Reproductive: History of: Ovarian Cysts Other: No history of: Cancer, HIV - Surgical History Cardiac Surgeries: Patient Denies: Cardiac Catheterization, Cardiac Surgery, Carotid Endarterectomy, Internal Defibrillator HEENT Surgeries: Patient denies: Carotid Endarterectomy, Thyroid Surgery, Tonsilectomy & Adenoidectomy Abdominal Surgeries: Surgical HX of: Colonoscopy Patient denies: Abdominal Surgery, Appendectomy, Cholecystectomy Reproductive Surgeries: Surgical HX of;: Hysterectomy (1984) Orthopedic Surgeries: Surgical HX of;: Total Hip Replacement (left hip), Total Knee Replacement (right knee) - Family History Family History: Reports;: Family Cancer (2 DAUGHTERS), Family Diabetes, Family Heart Disease, Family Hypertension - Social History Smoking Status: Never smoker Frequency of Alcohol Use: None Type of Drug Use: None Marital Status: Lives With:: Spouse (and grandson) Functional capacity: uses cane/walker (per patient report, "only every now and then") Physical Examination Vital Signs Temp Pulse Resp BP Pulse Ox 97.7 F 102 H 18 144/101 96 08/09/16 10:01 08/09/16 10:01 08/09/16 10:01 08/09/16 10:01 08/09/16 10:01 General: Present: No Apparent Distress HEENT: Present: Normocephaly, Mucus Membranes Moist. Absent: Jaundice, Pallor, Oral Lesions Neck: Present: Supple Neck, Midline Trachea, No JVD/HJR, No Masses, No Bruit, No Lymphadenopathy Cardiac: Present: Reg Rate and Rhythm. Absent: Audible Murmur, Bradycardia Lungs: Present: Normal Exam, Clear Ascult./Percussion, No Wheeze, Rales, Rhonchi Neuro: Present: Grossly Intact. Absent: Resting Tremor Abdomen: Present: Soft, Active Bowel Sounds, No Masses, No Pulsations/Bruits. Absent: Ascites, Tender, Firm, Distended Skin: Present: Clear Musculoskeletal: Present: No Fluid Collection Extremities: Present: No Clubbing, No Cyanosis, No Edema, Normal Upper Extr. Pulses (2+ radial, ulnar, brachial bilaterally), Normal Lower Extr. Pulses (2+ dorsalis pedis, posterior tibial bilaterally), Capillary Refill (normal) Result/EKG - Labs CBC & BMP: 08/11/16 04:19 08/10/16 03:51 Lab Results: I have reviewed the past 24 hour labs Labs: Laboratory Results - last 24 hr 08/10/16 08/10/16 08/10/16 11:26 14:00 15:05 WBC RBC Hgb Hct MCV MCH MCHC RDW Plt Count MPV Neut % (Auto) Lymph % (Auto) Bacon % (Auto) Eos % (Auto) Baso % (Auto) Neut # (Auto) Lymph # (Auto) Bacon # (Auto) Eos # (Auto) Baso # (Auto) Immature Gran % Nucleated RBC % Immature Gran # Nucleated RBCs # POC Glucose 191 H 224 H 177 H 08/10/16 08/10/16 08/11/16 17:44 18:54 04:19 WBC RBC Hgb 9.4 L 9.7 L Hct 31.0 L 31.9 L MCV MCH MCHC RDW Plt Count MPV Neut % (Auto) Lymph % (Auto) Bacon % (Auto) Eos % (Auto) Baso % (Auto) Neut # (Auto) Lymph # (Auto) Bacon # (Auto) Eos # (Auto) Baso # (Auto) Immature Gran % Nucleated RBC % Immature Gran # Nucleated RBCs # POC Glucose 190 H 08/11/16 08/11/16 04:19 07:27 WBC 5.6 RBC 3.74 L Hgb 9.7 L Hct 31.7 L MCV 84.8 L MCH 26 L MCHC 30.6 L RDW 13.5 Plt Count 240 MPV 11.3 Neut % (Auto) 48.8 Lymph % (Auto) 37.1 Bacon % (Auto) 10.1 Eos % (Auto) 3.4 Baso % (Auto) 0.4 Neut # (Auto) 2.7 Lymph # (Auto) 2.1 Bacon # (Auto) 0.6 Eos # (Auto) 0.2 Baso # (Auto) 0.0 Immature Gran % 0.2 Nucleated RBC % 0.0 Immature Gran # 0.01 Nucleated RBCs # 0.00 POC Glucose 193 H - Diagnostic Findings Procedure: Chest x-ray: report reviewed by me (08/09 no acute cardiopulmonary disease. degenerative changes and scoliosis of thoracolumbar spine) - EKG EKG results: interpreted by me EKG shows: sinus rhythm (pulse 70's) Quality Measures - VTE Contraindication to Pharmacological VTE Prophylaxis: Active Bleeding Pedro Costello Randall Scott, MD, personally performed the services described in this documentation, ascribed by Sameera Canales RN in my presence, and it is both accurate and complete .
[2016-08-11] MEDS: METOPROLOL SUCCINATE XL 25 MG TABLET PO SCH (21:53)
[2016-08-12 06:20] LABS: Calcium 8.2 MG/DL (8.5-10.1); Free T4 (Free Thyroxine) 1.22 NG/DL (0.76-1.46); Magnesium 2.2 MG/DL (1.8-2.4); Osmolality,Calculated 301.6 MOS/KG (273-304); Potassium 3.3 MMOL/L (3.5-5.1); Thyroid Stimulating Hormone 0.695 uIU/ml (0.358-3.74)
[2016-08-12] MEDS: INSULIN REGULAR 100 UNIT/ML SUBCUT SCH (08:58)
[2016-08-12] MEDS: METOPROLOL SUCCINATE XL 25 MG TABLET PO SCH (09:00)
[2016-08-12] MEDS: LOSARTAN 50 MG TABLET PO SCH (09:00)
[2016-08-12] MEDS: PANTOPRAZOLE 40 MG TABLET PO SCH (09:00)
[2016-08-12 12:03] VITALS: BP 148/70
--- NOTE | 2016-08-12 12:46 | Gastrointestinal Progress Note ---
Assessment and Plan (1) Lower gastrointestinal hemorrhage Status: Acute Assessment and plan: This patient likely has a diverticular bleed versus hemorrhoidal bleeding. Her hematocrit has only dropped down to 35% but it appears that it will continue to drift downward. I doubt ischemic colitis as patient did not have a requisite amount of cramping usually associated with this etiology. Unfortunately cancer is still in the differential and she has a daughter with history of same and she has never been evaluated with colonoscopy up to this point. She will need to be flushed out appropriately before we can evaluate her for this cancer/ diverticular bleeding. She will may be on a clear liquid diet tomorrow with MiraLAX prep. We'll continue watching her hematocrit over time. She really does not have any upper symptoms at this time but if we do not find any significant findings on colonoscopy with might consider doing a upper endoscopy to look for tisha ulcerations or bleeding source. 08/10/16-- Awaiting colonoscopy tomorrow, currently on clears, about to start prep in near future. HCT 35-->29.8 --> 27.6% most recently. Suspect diverticular source. 08/11/16--the patient had her colonoscopy this morning and her hematocrit appears stable without transfusion now up to 31%.: Findings were as follows: I strong suspect this patient had a diverticular bleed from the right colon, if further bleeding occurs we can consider doing upper endoscopy in addition. If the patient returns again acutely would strongly suggest getting a tagged red blood cell scan to see if the bleeding can be localized one area. The patient demonstrated some tachycardia during the procedure consistent with SVT, cardiac consultation may be helpful. archives technician also describes arrhythmias over the evening times-- patient by report appeared normal on nursing check. 08/12/16--patient is doing adequately today with no further blood in her stools, she is ready go from my standpoint. Note that this patient has a 25% chance of rebleeding in the next 1 year-- should this occur acutely I would like her to obtain a stat tagged red blood cell scan to see if we can find a position of the bleeding in the GI tract. I would like to confirm that this is coming from her right diverticular region. Current Visit: Yes (2) Anemia, posthemorrhagic, acute Status: Acute Assessment and plan: As mentioned above over continue to watch the patient's CBC for hematocrit drift and I will plan on transfusing her if her hematocrit drops below 24%. Currently she is a 35%. Parameters written. Risks of the endoscopy were reviewed with the patient and include but aren't limited to: Bleeding, infection , perforation, cardiac and pulmonary compromise. 08/10/16-- The patient is getting closer to our transfusion parameters. Will plan to start transfusion if HCT < or = to 24%. Await colo results tomorrow. 08/11/16--no ongoing bleeding demonstrated on colonoscopy, the patient did not require transfusion, she is stable at this point he can be discharged from the hospital if she tolerates a cardiac diet and does not need further Cardiologic workup. 08/12/16--as the patient is doing well at this time I will sign off the case, thank you for the opportunity to serve this very pleasant lady. Current Visit: Yes Gastroenterology - PN: Subj Interval history: Patient is doing fantastic at this time. No further bloody bowel movements, eating all of her diet-- from a GI standpoint she is good to leave the hospital. Exam (Progress Note) - Constitutional Vitals: Period Temp Pulse Resp BP Sys/Carlton Pulse Ox Last 24 Hr 96.8 F-98.4 F 56-81 16-20 128-172/64-91 93-99 General appearance: no acute distress - Head Head exam: Present: normocephalic - Eye Eye exam: Present: EOMI - Respiratory Respiratory exam: Present: clear to auscultation bilaterally, wheezes - Cardiovascular Cardiovascular exam: Present: regular rate and rhythm - GI/Abdominal GI/Abdominal exam: Present: normal bowel sounds, soft. Absent: tenderness, rebound - Neurological Exam Neurological exam: Present: alert, oriented X3. Absent: motor sensory deficit - Psychiatric Psychiatric exam: Present: normal affect, normal mood Results - Labs CBC & BMP: 08/11/16 04:19 08/12/16 04:09
--- NOTE | 2016-08-12 12:48 | ECHO Report ---
Alivia Jackson 08/12/2016 Exam Date: 08:25 Referring Physician: Kelsey Barrera Technologist: KAELA Age: 80 Ht (in): Wt (lb): FExam Location: [facility] Gender: Echo [id number]: Atrial arrhythmias, Pre-syncope, Indications:NIDDM, Chronic fatigue, unspecified, Essential (primary) hypertension BP: / HR: SinusRhythm: Technical Quality: IMPRESSIONS 1+ left atrial enlargement Normal LV systolic function with ejection fraction estimated to be 60% without segmental wall motion abnormality Trace to 1+ mitral and tricuspid regurgitation with RVSP 36 mmHg plus RAP MEASUREMENTS (Male / Female) Normal Values 2D ECHO LV Diastolic Diameter PLAX 5.0 cm 4.2 - 5.9 / 3.9 - 5.3 cm LV Systolic Diameter PLAX 3.7 cm LV Fractional Shortening PLAX 26.0 % IVS Diastolic Thickness 0.8 cm 0.6 - 1.0 / 0.6 - 0.9 cm LVPW Diastolic Thickness 0.9 cm 0.6 - 1.0 / 0.6 - 0.9 cm RV Internal Dim ED PLAX 3.5 cm Aortic Root Diameter 3.5 cm LA Systolic Diameter LX 4.2 cm 3.0 - 4.0 / 2.7 - 3.8 cm DOPPLER TR Peak Velocity 301.0 cm/s TR Peak Gradient 36.2 mmHg FINDINGS Left Ventricle Normal left ventricular cavity size. Normal left ventricular wall thickness. Left ventricular ejection fraction is estimated at Right Ventricle The right ventricle is normal in size and function. Right Atrium The right atrium is mildly enlarged. Left Atrium Moderately increased left atrial size. Mitral Valve Mildly thickened mitral valve with mild mitral regurgitation. Aortic Valve Morphologically normal aortic valve without significant sclerosis or stenosis. There is no aortic regurgitation. Tricuspid Valve Morphologically normal tricuspid valve. Mild tricuspid valve regurgitation. Tricuspid regurgitation velocities suggest a PAP of 46 mmHg. Pulmonic Valve Morphologically normal pulmonic valve without significant stenosis. There is no pulmonic regurgitation. Pericardium Normal pericardium without effusion. Aorta Normal ascending aorta dimension. Miguel Angel Vasquez (Electronically Signed) 12 August 2016 Final Date: 12:47
--- NOTE | 2016-08-12 13:23 | Cardiology Progress Note ---
Assessment and Plan (1) Atrial arrhythmia Status: Acute Assessment and plan: 1. 80-year-old moderately overweight BF with history of hypertension, diabetes , who presented with some bright red blood per rectum status post scope today showing diverticulosis; she is not had any further bleeding this afternoon. She 's had a couple of episodes of short tachycardia, most consistent with paroxysmal atrial fibrillation with aberrancy, with rate over 150 BPM 2. No history of TIA stroke or presyncope; she did have one modest episode of orthostasis in the last several days, no symptoms associated with her documented runs on telemetry oh (less than 10 seconds) 3. Check echocardiogram in the morning to evaluate for structural heart disease 4. Check TSH as well as electrolytes in the morning 5. Start low-dose beta maryam Toprol 25 mg once twice a day August 12 update: 1. Mrs. Jackson to well clinically, and denies any further bleeding 2. TSH is noted to be normal 3. Echocardiogram shows LV function with no significant structural heart disease 4. On further history she's had repeated episodes of severe dizziness, not clearly orthostasis; given her short runs of what looks like paroxysmal atrial fibrillation with RVR, I recommended implantable LINQ recorder; I discussed this with her we will schedule this for Monday morning 5. She can be discharged from a cardiac standpoint 6. Recommend continuing Toprol for rate/rhythm control Current Visit: Yes (2) Pre-syncope Status: Chronic Current Visit: Yes (3) Diabetes mellitus type 2 in nonobese Status: Acute Current Visit: No (4) Hypertension Status: Acute Current Visit: No (5) Arthritis Status: Chronic Current Visit: No Cardiology - PN: Subj Interval history: Mrs. Jackson is feeling well today. She has not had any palpitations or dizziness. She denies any further bleeding. Exam (Progress Note) - Constitutional Vitals: Period Temp Pulse Resp BP Sys/Carlton Pulse Ox Last 24 Hr 96.8 F-98.4 F 56-81 16-20 128-172/64-91 93-99 General appearance: no acute distress, over weight - Head Head exam: Present: normal inspection, normocephalic, atraumatic - Neck Neck exam: Present: normal inspection, lymphadenopathy - Respiratory Respiratory exam: Present: clear to auscultation bilaterally. Absent: stridor, wheezes - Cardiovascular Cardiovascular exam: Present: regular rate and rhythm. Absent: diastolic murmur , rubs - GI/Abdominal GI/Abdominal exam: Present: soft. Absent: tenderness - Extremities Exam Extremities exam: Absent: edema Result/EKG - Labs CBC & BMP: 08/11/16 04:19 08/12/16 04:09 Labs: Laboratory Results - last 24 hr 08/11/16 08/11/16 08/12/16 14:59 18:47 04:09 Sodium 153 H Potassium 3.3 L Chloride 116 H Carbon Dioxide 27 Anion Gap 13.3 BUN 7 Creatinine 0.60 GFR Calculation 100 BUN/Creatinine Ratio 11.00 Glucose 114 H POC Glucose 181 H 217 H Calculated Osmolality 301.6 Calcium 8.2 L Magnesium 2.2 Free T4 1.22 TSH 3rd Generation 0.695 08/12/16 08/12/16 07:16 11:43 Sodium Potassium Chloride Carbon Dioxide Anion Gap BUN Creatinine GFR Calculation BUN/Creatinine Ratio Glucose POC Glucose 156 H 311 H Calculated Osmolality Calcium Magnesium Free T4 TSH 3rd Generation Quality Measures - VTE Contraindication to Pharmacological VTE Prophylaxis: Active Bleeding
--- NOTE | 2016-08-12 13:28 | Discharge Summary ---
<Candice Miranda N - Last Filed: 08/12/16 13:15> Hospital Course - Hospital Course Hospital Course: Ms. Jackson is a 80 year old female who was admitted on 08/09/16 for lower GI bleeding and pre-syncope. She was hemodynamically stable on admission and counts were stable and holding at , did slightly drop with hydration but did not require a transfusion, had no further acute bleeding after admission, only one small firm stool with streaks of blood. She underwent colonoscopy on with Dr. Maldonado, findings of diverticular bleed from the right colon. He recommended follow up biopsy results as an outpt in 1-2 weeks and upper endoscopy if bleeding returns. recommends high fiber diet. She did have an episode of SVT during her colonoscopy. Cardiology was consulted and she was seen by Dr. Vasquez. He started her on Toprol 25mg BID, TSH was checked and was normal, echo has been done this morning. She has had several <10sec runs documented on telemetry monitoring, asymptomatic. Cardiology has scheduled her for LINQ recorder placement on monday and will follow for her arrythmia, continue on Toprol, and has cleared her for discharge as well. She is feeling well this morning, tolerating a diet, with no further bleeding. Labs are WNL and she is hemodynamically stable. She can be discharged to home today with the above mentioned follow ups. Please see discharge medication reconciliation for accurate list. Specialty Discharge - Follow Up or Referrals Follow up with: Miguel Angel Vasquez MD [Physician] - 08/15/16 (OFFICE HAS SCHEDULED AND PATIENT IS AWARE OF APPT. DATE AND TIME) Giovany Maldonado MD [Physician] - 09/01/16 9:30 am Discharge Plan - Discharge Data Disposition: Disch To Home/Self Care Condition at Discharge: Stable Discharge Diet: advance to your usual diet Activity: resume usual activities as tolerated - Discharge Medications New Metoprolol Succinate Xl [Toprol Xl] 25 mg PO BID #60 tablet Continue Losartan/Hydrochlorothiazide [Losartan-Hctz 50-12.5 mg Tab] 1 each PO DAILY metFORMIN [Glucophage] 500 mg PO TID Aspirin EC Tab 81 mg PO DAILY Multivit-Min/FA/Lycopene/Lut [Centrum Silver Tablet] 1 each PO DAILY - Follow Up or Referral Follow Up: Miguel Angel Vasquez MD [Physician] - 08/15/16 (OFFICE HAS SCHEDULED AND PATIENT IS AWARE OF APPT. DATE AND TIME) Giovany Maldonado MD [Physician] - 09/01/16 9:30 am - Forms/Instructions Exam - Constitutional General appearance: no acute distress - Head Head exam: Present: normal inspection, normocephalic - Eye Eye exam: Present: EOMI. Absent: scleral icterus Pupils: Present: ISIAH, normal accommodation - ENT ENT exam: Present: normal exam, normal oropharynx - Neck Neck exam: Present: normal inspection. Absent: lymphadenopathy - Respiratory Respiratory exam: Present: clear to auscultation bilaterally. Absent: wheezes - Cardiovascular Cardiovascular exam: Present: regular rate and rhythm. Absent: tachycardia - GI/Abdominal GI/Abdominal exam: Present: normal bowel sounds, soft. Absent: tenderness - Extremities Exam Extremities exam: Present: normal inspection, full ROM. Absent: edema - Back Exam Back exam: Present: normal inspection. Absent: muscle spasm - Neurological Exam Neurological exam: Present: alert, oriented X3 - Psychiatric Psychiatric exam: Present: normal affect, normal mood - Skin Skin exam: Present: normal color, warm, dry DS: Provider Date of admission: 08/09/16 11:42 Primary care physician: . No PCP Attending physician on admission: Gordo De La Cruz MD Consults: 08/09/16 11:53 Consult to Pharmacy [CONS] Routine Reason for Pharmacy Consult: Adjust Meds Renal Funct 08/09/16 13:36 Consult to Dietitian [CONS] Routine Reason for Dietitian: Dietary Consult 08/11/16 07:19 Consult to Physician [CONS] Routine Comment: Rapid atrial tachycardia with history of presyncop Consulting Provider: Cardiology - [facility] Consult to Specialist Group: Cardiology When should Consulting Provider be notified: Now Person Notified: MELISSA Date Notified: 08/11/16 Time Notified: 10:25 Discharging clinician: MELINDA Londono Expected date of discharge: 08/12/16 <Dianne Gonzalez - Last Filed: 08/15/16 16:18> Hospital Course - Hospital Course Hospital Course: I have seen and examined the patient and I agree with the assessment and plan as outlined by nurse practitioner Candice Miranda. Mrs. Jackson is a 80-year- old female who is admitted for lower GI bleeding. She had a colonoscopy. Results above. She will follow up with GI.
== END 2016-08-12 14:39 | disposition home or self-care (01) | DRG 378 ==
LOC: N.ED 09:59 → N.EDINP 11:42 → N.TELES 12:21
PROVIDERS: ADMIT Internal Medicine Cardiovascular Disease; ATTEND Internal Medicine Cardiovascular Disease

== ENCOUNTER 2018-11-15 05:02 | Inpatient (IN) ==
[2018-11-15] MEDS ORDERED: SODIUM CHLORIDE 0.9% 1,000 ML IV PRN (05:19)
[2018-11-15 05:24] LABS: Basophils % 0.7 % (0.0-0.8); Eosinophils # 0.1 10*3/uL (0.0-0.87); Hematocrit 24.8 VOL% (35.7-47.0); Hemoglobin 7.4 GM/DL (12.0-16.0); Immature Granulocytes % 0.3 %; Immature Granulocytes Absolute 0.02 #; Lymphocytes # 1.5 10*3/uL (1.4-4.0); Lymphocytes % 23.9 % (21.3-54.2); Mean Corpuscular HGB Conc 29.8 GM/DL (32-36); Mean Corpuscular Volume 91.2 FL (87-102); Mean Platelet Volume 10.5 FL (9.6-12.0); Monocytes % 7.2 % (1.7-12.7); Neutrophils % 66.9 % (38.7-73.9); Platelet Count 196 T/CUMM (130-400); Red Blood Count 2.72 MC/CUMM (3.8-5.5); Red Cell Distribution Width 14.6 % (9.3-17.3); White Blood Count 6.1 T/CUMM (4-12)
[2018-11-15 05:30] LABS: PT Patient Result 11.1 SECS
[2018-11-15 05:39] LABS: Alanine Aminotransferase 26 U/L (13-56); Albumin 2.8 G/DL (3.4-5.0); Alkaline Phosphatase 94 U/L (45-117); Aspartate Amino Transferase 15 U/L (0-37); Bilirubin,Total < 0.39 MG/DL (0.2-1.0); Blood Urea Nitrogen 25 MG/DL (7-18); Calcium 8.4 MG/DL (8.5-10.1); Glucose 274 MG/DL (74-106); Osmolality,Calculated 303.6 MOS/KG (273-304); Total Protein 5.6 G/DL (6.4-8.3)
[2018-11-15] MEDS ORDERED: ACETAMINOPHEN 325 MG TABLET PO PRN (09:22)
[2018-11-15] MEDS ORDERED: ONDANSETRON 4 MG/2 ML VIAL IV PRN (09:22)
[2018-11-15] MEDS ORDERED: GLUCAGON 1 MG VIAL IM PRN (09:25)
[2018-11-15] MEDS ORDERED: DEXTROSE 50% 25 GM/50 ML VIAL IV PRN (09:25)
[2018-11-15] MEDS: PANTOPRAZOLE 40 MG VIAL IV SCH ×2 (10:49→21:19)
[2018-11-15] MEDS: amLODIPine 5 MG TABLET PO SCH (10:49)
[2018-11-15] MEDS: INSULIN REGULAR 100 UNIT/ML SUBCUT SCH ×3 (13:25→21:16)
[2018-11-15 18:46] LABS: Apearance,Urine CLEAR (Clear); Bilirubin,Urine Negative (Negative); Blood, Urine Small mg/dL (Negative); Glucose,Urine (UA) 50 mg/dL (Negative); Ketones,Urine Negative (Negative); Mucus,Urine Occasional /LPF (Occasional); Nitrite,Urine Negative (Negative); Protein,Urine Negative; RBC,Urine 1 /HPF (0-4); Squamous Epithelial Cell,Urine Occasional /HPF (0-10); Urine Color Yellow (Yellow); Urine Specific Gravity 1.026 (1.001-1.035); Urine Urobilinogen < 2.0 EU/DL (0.2-1.0); WBC,Urine <1 /HPF (0-6)
[2018-11-15 18:51] LABS: Hemoglobin 8.2 GM/DL (12.0-16.0)
[2018-11-15] MEDS: METOPROLOL SUCCINATE XL 25 MG TABLET PO SCH (21:19)
[2018-11-15] MEDS: POLYETHYLENE GLYCOL POWDER 17 GM PACK PO SCH (21:22)
[2018-11-16 06:05] LABS: Hematocrit 24.5 VOL% (35.7-47.0); Hemoglobin 7.6 GM/DL (12.0-16.0)
[2018-11-16 06:15] LABS: Basophils % 0.6 % (0.0-0.8); Eosinophils # 0.2 10*3/uL (0.0-0.87); Eosinophils % 4.5 % (0.00-10.9); Hematocrit 24.9 VOL% (35.7-47.0); Hemoglobin 7.6 GM/DL (12.0-16.0); Immature Granulocytes % 0.2 %; Immature Granulocytes Absolute 0.01 #; Lymphocytes # 2.2 10*3/uL (1.4-4.0); Lymphocytes % 42.8 % (21.3-54.2); Mean Corpuscular HGB Conc 30.5 GM/DL (32-36); Mean Corpuscular Volume 88.6 FL (87-102); Mean Platelet Volume 11.1 FL (9.6-12.0); Monocytes % 10.5 % (1.7-12.7); Neutrophils % 41.4 % (38.7-73.9); Platelet Count 129 T/CUMM (130-400); Red Blood Count 2.81 MC/CUMM (3.8-5.5); White Blood Count 5.1 T/CUMM (4-12)
[2018-11-16 06:24] LABS: Calcium 7.8 MG/DL (8.5-10.1); Osmolality,Calculated 295.6 MOS/KG (273-304); Risk Ratio 3.03; Thyroid Stimulating Hormone 0.641 uIU/ml (0.358-3.74); VLDL CHOLESTEROL 15.4 MG/DL
[2018-11-16] MEDS: INSULIN REGULAR 100 UNIT/ML SUBCUT SCH ×4 (09:41→22:04)
[2018-11-16] MEDS: ATORVASTATIN 40 MG TABLET PO SCH (09:42)
[2018-11-16] MEDS: POTASSIUM CHLORIDE 10 MEQ TABLET PO SCH (09:42)
[2018-11-16] MEDS: amLODIPine 5 MG TABLET PO SCH (09:43)
[2018-11-16] MEDS: PANTOPRAZOLE 40 MG VIAL IV SCH ×2 (09:43→21:54)
[2018-11-16] MEDS: POLYETHYLENE GLYCOL POWDER 17 GM PACK PO SCH ×3 (09:43→21:56)
[2018-11-16] MEDS: ASPIRIN EC 81 MG TABLET PO SCH (09:43)
[2018-11-16] MEDS: METOPROLOL SUCCINATE XL 25 MG TABLET PO SCH (09:43)
[2018-11-16] MEDS: MULTIVITAMIN (CENTRUM) TABLET PO SCH (09:44)
[2018-11-16] MEDS ORDERED: SODIUM CHLORIDE 0.9% 1,000 ML IV PRN (13:13)
[2018-11-16 21:35] LABS: Hematocrit 30.8 VOL% (35.7-47.0); Hemoglobin 9.7 GM/DL (12.0-16.0)
[2018-11-16 21:43] LABS: Hemoglobin 9.7 GM/DL (12.0-16.0)
[2018-11-16] MEDS: SOTALOL 80 MG TABLET PO SCH (21:56)
[2018-11-17 04:29] LABS: Basophils # 0.1 10*3/uL (0.0-0.2); Basophils % 0.8 % (0.0-0.8); Eosinophils # 0.3 10*3/uL (0.0-0.87); Eosinophils % 3.8 % (0.00-10.9); Hematocrit 29.6 VOL% (35.7-47.0); Hemoglobin 9.6 GM/DL (12.0-16.0); Immature Granulocytes % 0.3 %; Immature Granulocytes Absolute 0.02 #; Lymphocytes # 1.3 10*3/uL (1.4-4.0); Lymphocytes % 19.7 % (21.3-54.2); Mean Corpuscular HGB Conc 32.4 GM/DL (32-36); Mean Corpuscular Volume 87.3 FL (87-102); Mean Platelet Volume 11.4 FL (9.6-12.0); Monocytes % 11.6 % (1.7-12.7); Neutrophils % 63.8 % (38.7-73.9); Platelet Count 138 T/CUMM (130-400); Red Blood Count 3.39 MC/CUMM (3.8-5.5); Red Cell Distribution Width 15.4 % (9.3-17.3); White Blood Count 6.6 T/CUMM (4-12)
[2018-11-17 04:59] LABS: Calcium 8.1 MG/DL (8.5-10.1); Osmolality,Calculated 293.4 MOS/KG (273-304)
[2018-11-17] MEDS: SOTALOL 80 MG TABLET PO SCH ×2 (09:08→21:17)
[2018-11-17] MEDS: amLODIPine 5 MG TABLET PO SCH (09:08)
[2018-11-17] MEDS: MULTIVITAMIN (CENTRUM) TABLET PO SCH (09:08)
[2018-11-17] MEDS: POLYETHYLENE GLYCOL POWDER 17 GM PACK PO SCH ×3 (09:09→21:14)
[2018-11-17] MEDS: PANTOPRAZOLE 40 MG VIAL IV SCH ×2 (09:09→21:14)
[2018-11-17] MEDS: INSULIN REGULAR 100 UNIT/ML SUBCUT SCH ×4 (09:09→22:11)
[2018-11-17] MEDS: ASPIRIN EC 81 MG TABLET PO SCH (09:09)
[2018-11-17] MEDS: POTASSIUM CHLORIDE 10 MEQ TABLET PO SCH (09:09)
[2018-11-17] MEDS: ATORVASTATIN 40 MG TABLET PO SCH (09:09)
[2018-11-17] MEDS ORDERED: POTASSIUM CHLORIDE 20 MEQ TABLET PO ONE (09:24)
[2018-11-17] MEDS: MIRTAZAPINE 15 MG TABLET PO SCH (22:11)
[2018-11-18 04:58] LABS: Basophils % 0.6 % (0.0-0.8); Eosinophils # 0.2 10*3/uL (0.0-0.87); Eosinophils % 2.5 % (0.00-10.9); Hematocrit 26.8 VOL% (35.7-47.0); Hemoglobin 8.3 GM/DL (12.0-16.0); Immature Granulocytes % 0.3 %; Immature Granulocytes Absolute 0.02 #; Lymphocytes # 1.1 10*3/uL (1.4-4.0); Lymphocytes % 17.5 % (21.3-54.2); Mean Corpuscular Volume 90.5 FL (87-102); Mean Platelet Volume 11.5 FL (9.6-12.0); Monocytes % 7.7 % (1.7-12.7); Neutrophils % 71.4 % (38.7-73.9); Platelet Count 144 T/CUMM (130-400); Red Blood Count 2.96 MC/CUMM (3.8-5.5); Red Cell Distribution Width 15.4 % (9.3-17.3); White Blood Count 6.5 T/CUMM (4-12)
[2018-11-18 05:24] LABS: Calcium 7.9 MG/DL (8.5-10.1); Osmolality,Calculated 293.6 MOS/KG (273-304)
[2018-11-18] MEDS: PANTOPRAZOLE 40 MG TABLET PO SCH ×2 (06:42→18:09)
[2018-11-18] MEDS: INSULIN REGULAR 100 UNIT/ML SUBCUT SCH ×4 (09:29→20:53)
[2018-11-18] MEDS: amLODIPine 5 MG TABLET PO SCH (09:30)
[2018-11-18] MEDS: SOTALOL 80 MG TABLET PO SCH ×2 (09:30→20:53)
[2018-11-18] MEDS: ASPIRIN EC 81 MG TABLET PO SCH (09:30)
[2018-11-18] MEDS: POLYETHYLENE GLYCOL POWDER 17 GM PACK PO SCH ×3 (09:30→20:53)
[2018-11-18] MEDS: MULTIVITAMIN (CENTRUM) TABLET PO SCH (09:30)
[2018-11-18] MEDS: POTASSIUM CHLORIDE 10 MEQ TABLET PO SCH (09:30)
[2018-11-18] MEDS: ATORVASTATIN 40 MG TABLET PO SCH (09:30)
[2018-11-18] MEDS: MIRTAZAPINE 15 MG TABLET PO SCH (20:54)
[2018-11-19 06:08] LABS: Basophils # 0.1 10*3/uL (0.0-0.2); Basophils % 0.9 % (0.0-0.8); Eosinophils # 0.2 10*3/uL (0.0-0.87); Eosinophils % 3.6 % (0.00-10.9); Hematocrit 24.8 VOL% (35.7-47.0); Hemoglobin 7.5 GM/DL (12.0-16.0); Immature Granulocytes % 0.4 %; Immature Granulocytes Absolute 0.02 #; Lymphocytes # 1.7 10*3/uL (1.4-4.0); Lymphocytes % 31.5 % (21.3-54.2); Mean Corpuscular HGB Conc 30.2 GM/DL (32-36); Mean Corpuscular Volume 92.5 FL (87-102); Mean Platelet Volume 11.4 FL (9.6-12.0); Monocytes % 10.7 % (1.7-12.7); Neutrophils % 52.9 % (38.7-73.9); Platelet Count 181 T/CUMM (130-400); Red Blood Count 2.68 MC/CUMM (3.8-5.5); Red Cell Distribution Width 15.8 % (9.3-17.3); White Blood Count 5.5 T/CUMM (4-12)
[2018-11-19] MEDS: PANTOPRAZOLE 40 MG TABLET PO SCH ×2 (06:08→18:04)
[2018-11-19 06:31] LABS: Calcium 7.9 MG/DL (8.5-10.1); Osmolality,Calculated 290.6 MOS/KG (273-304)
[2018-11-19] MEDS: INSULIN REGULAR 100 UNIT/ML SUBCUT SCH ×4 (08:30→21:56)
[2018-11-19] MEDS ORDERED: SODIUM CHLORIDE 0.9% 1,000 ML IV PRN (08:30)
[2018-11-19] MEDS: MULTIVITAMIN (CENTRUM) TABLET PO SCH (09:38)
[2018-11-19] MEDS: ATORVASTATIN 40 MG TABLET PO SCH (09:38)
[2018-11-19] MEDS: amLODIPine 5 MG TABLET PO SCH (09:38)
[2018-11-19] MEDS: SOTALOL 80 MG TABLET PO SCH ×2 (09:38→21:55)
[2018-11-19] MEDS: POTASSIUM CHLORIDE 10 MEQ TABLET PO SCH (09:38)
[2018-11-19] MEDS: ASPIRIN EC 81 MG TABLET PO SCH (09:39)
[2018-11-19] MEDS: POLYETHYLENE GLYCOL POWDER 17 GM PACK PO SCH ×3 (09:40→21:57)
[2018-11-19] MEDS: MIRTAZAPINE 15 MG TABLET PO SCH (21:56)
[2018-11-19 22:07] LABS: Hematocrit 31.1 VOL% (35.7-47.0); Hemoglobin 9.8 GM/DL (12.0-16.0)
[2018-11-19 22:16] LABS: INR 0.9; PT Patient Result 10.3 SECS
[2018-11-20 04:28] LABS: Basophils # 0.1 10*3/uL (0.0-0.2); Eosinophils # 0.3 10*3/uL (0.0-0.87); Eosinophils % 4.4 % (0.00-10.9); Hematocrit 31.3 VOL% (35.7-47.0); Hemoglobin 9.6 GM/DL (12.0-16.0); Immature Granulocytes % 0.5 %; Immature Granulocytes Absolute 0.03 #; Lymphocytes % 32.9 % (21.3-54.2); Mean Corpuscular HGB Conc 30.7 GM/DL (32-36); Mean Corpuscular Volume 88.9 FL (87-102); Mean Platelet Volume 11.1 FL (9.6-12.0); Monocytes % 12.6 % (1.7-12.7); Neutrophils % 48.6 % (38.7-73.9); Platelet Count 182 T/CUMM (130-400); Red Blood Count 3.52 MC/CUMM (3.8-5.5); Red Cell Distribution Width 16.4 % (9.3-17.3)
[2018-11-20] MEDS: PANTOPRAZOLE 40 MG TABLET PO SCH (06:03)
[2018-11-20 08:19] VITALS: BP 150/64
[2018-11-20] MEDS: SOTALOL 80 MG TABLET PO SCH (09:26)
[2018-11-20] MEDS: MULTIVITAMIN (CENTRUM) TABLET PO SCH (09:26)
[2018-11-20] MEDS: POTASSIUM CHLORIDE 10 MEQ TABLET PO SCH (09:26)
[2018-11-20] MEDS: amLODIPine 5 MG TABLET PO SCH (09:26)
[2018-11-20] MEDS: POLYETHYLENE GLYCOL POWDER 17 GM PACK PO SCH (09:27)
[2018-11-20] MEDS: INSULIN REGULAR 100 UNIT/ML SUBCUT SCH ×2 (09:27→13:38)
[2018-11-20] MEDS: ATORVASTATIN 40 MG TABLET PO SCH (09:29)
== END 2018-11-20 12:04 | disposition home or self-care (01) ==
LOC: N.ED 05:02 → N.EDINP 09:22 → N.4E 11:15
PROVIDERS: ADMIT Internal Medicine; ATTEND Internal Medicine

== ENCOUNTER 2021-10-19 20:10 | Observation (INO) ==
[2021-10-19] MEDS ORDERED: SODIUM CHLORIDE 0.9% 500 ML IV STA (20:30)
[2021-10-19 21:04] LABS: Basophils # 0.1 10*3/uL (0.0-0.2); Basophils % 0.9 % (0.0-0.8); Eosinophils # 0.3 10*3/uL (0.0-0.87); Eosinophils % 4.5 % (0.00-10.9); Hematocrit 35.4 VOL% (35.7-47.0); Hemoglobin 10.6 GM/DL (12.0-16.0); Immature Granulocytes % 0.3 %; Immature Granulocytes Absolute 0.02 #; Lymphocytes # 1.8 10*3/uL (1.4-4.0); Lymphocytes % 31.3 % (21.3-54.2); Mean Corpuscular HGB Conc 29.9 GM/DL (32-36); Mean Corpuscular Volume 91.5 FL (87-102); Mean Platelet Volume 9.9 FL (9.6-12.0); Monocytes % 11.8 % (1.7-12.7); Neutrophils % 51.2 % (38.7-73.9); Platelet Count 246 T/CUMM (130-400); Red Blood Count 3.87 MC/CUMM (3.8-5.5); Red Cell Distribution Width 13.2 % (9.3-17.3); White Blood Count 5.8 T/CUMM (4-12)
[2021-10-19 21:17] LABS: Hyaline Casts,Urine 7 /LPF (0-3); Mucus,Urine Occasional /LPF (Occasional)
[2021-10-19 21:20] LABS: Barbiturates Screen,Urine Negative (Negative); Benzodiazepines Screen,Urine Negative (Negative); Cannabinoid Screen,Urine Negative (Negative); Opiate Screen,Urine Negative (Negative); Phencyclidine Screen,Urine Negative (Negative)
[2021-10-19 21:31] LABS: Bilirubin,Urine Negative (Negative); Blood, Urine Negative (Negative); Glucose,Urine (UA) Negative (Negative); Ketones,Urine Trace mg/dL (Negative); Nitrite,Urine Negative (Negative); Protein,Urine Negative (Negative); Urine Appearance Clear (Clear); Urine Color Yellow (Yellow); Urine Urobilinogen 0.2 eU/dL (<2.0)
[2021-10-19 21:32] LABS: Bacteria,Urine Occasional /HPF (Few); RBC,Urine 3 /HPF (0-4); Squamous Epithelial Cell,Urine Occasional /HPF (0-10)
[2021-10-19 21:38] LABS: Alanine Aminotransferase 16 U/L (13-56); Albumin 3.2 G/DL (3.4-5.0); Alkaline Phosphatase 84 U/L (45-117); Aspartate Amino Transferase 16 U/L (0-37); Blood Urea Nitrogen 38 MG/DL (7-18); Calcium 9.6 MG/DL (8.5-10.1); Carbon Dioxide 28 MMOL/L (21-32); Estimated Glom Filtration Rate 22 ML/MIN; Glucose 217 MG/DL (74-106); Potassium 4.3 MMOL/L (3.5-5.1); Sodium 143 MMOL/L (136-145); Total Protein 7.4 G/DL (6.4-8.2)
[2021-10-19] MEDS ORDERED: SODIUM CHLORIDE 0.9% 1,000 ML IV STA ×2 (21:49→22:15)
[2021-10-19] MEDS ORDERED: ONDANSETRON 4 MG/2 ML VIAL IV PRN (23:08)
[2021-10-19] MEDS ORDERED: DEXTROSE 50% 25 GM/50 ML VIAL IV PRN (23:08)
[2021-10-19] MEDS ORDERED: GLUCAGON 1 MG VIAL IM PRN ×2 (23:08)
[2021-10-19] MEDS ORDERED: ZALEPLON 5 MG CAPSULE PO PRN (23:08)
[2021-10-19] MEDS ORDERED: hydrALAZINE 20 MG/1 ML VIAL IV PRN (23:08)
[2021-10-19] MEDS ORDERED: DEXTROSE 10% 250 ML BAG IV PRN (23:08)
[2021-10-19] MEDS ORDERED: ACETAMINOPHEN 325 MG TABLET PO PRN (23:08)
[2021-10-19] MEDS ORDERED: DOCUSATE SODIUM 100 MG CAPSULE PO PRN (23:08)
[2021-10-19] MEDS ORDERED: ENOXAPARIN 60 MG/0.6 ML SYRINGE SUBCUT STA (23:11)
[2021-10-19] MEDS: SODIUM CHLORIDE 0.9% 1,000 ML IV SCH (23:45)
[2021-10-20 03:24] LABS: Basophils # 0.1 10*3/uL (0.0-0.2); Basophils % 0.8 % (0.0-0.8); Eosinophils # 0.3 10*3/uL (0.0-0.87); Eosinophils % 4.6 % (0.00-10.9); Hematocrit 31.1 VOL% (35.7-47.0); Hemoglobin 9.5 GM/DL (12.0-16.0); Immature Granulocytes % 0.3 %; Immature Granulocytes Absolute 0.02 #; Lymphocytes # 2.6 10*3/uL (1.4-4.0); Lymphocytes % 40.9 % (21.3-54.2); Mean Corpuscular HGB Conc 30.5 GM/DL (32-36); Mean Corpuscular Volume 90.7 FL (87-102); Monocytes % 12.8 % (1.7-12.7); Neutrophils % 40.6 % (38.7-73.9); Platelet Count 206 T/CUMM (130-400); Red Blood Count 3.43 MC/CUMM (3.8-5.5); White Blood Count 6.3 T/CUMM (4-12)
[2021-10-20 03:50] LABS: Calcium 8.8 MG/DL (8.5-10.1); Osmolality,Calculated 296.7 MOS/KG (273-304)
[2021-10-20] MEDS: INSULIN LISPRO 100 UNIT/ML SUBCUT SCH ×4 (07:58→20:06)
[2021-10-20] MEDS: PANTOPRAZOLE 40 MG TABLET PO SCH (08:01)
[2021-10-20 15:18] LABS: % Iron Saturation 18.6 % (18-50); Ferritin 64.3 ng/mL (8-252)
[2021-10-20] MEDS: SODIUM CHLORIDE 0.9% 1,000 ML IV SCH (15:20)
[2021-10-20 17:48] LABS: Folate 18.38 NG/ML (5.38-24.0)
[2021-10-21] MEDS: SODIUM CHLORIDE 0.9% 1,000 ML IV SCH (00:04)
[2021-10-21 05:16] LABS: Basophils # 0.1 10*3/uL (0.0-0.2); Basophils % 1.1 % (0.0-0.8); Eosinophils # 0.3 10*3/uL (0.0-0.87); Eosinophils % 6.6 % (0.00-10.9); Hematocrit 30.6 VOL% (35.7-47.0); Hemoglobin 9.4 GM/DL (12.0-16.0); Immature Granulocytes % 0.2 %; Immature Granulocytes Absolute 0.01 #; Lymphocytes # 1.5 10*3/uL (1.4-4.0); Lymphocytes % 33.5 % (21.3-54.2); Mean Corpuscular HGB Conc 30.7 GM/DL (32-36); Monocytes % 15.6 % (1.7-12.7); Platelet Count 193 T/CUMM (130-400); White Blood Count 4.5 T/CUMM (4-12)
[2021-10-21 05:34] LABS: Calcium 8.7 MG/DL (8.5-10.1); Osmolality,Calculated 293.7 MOS/KG (273-304); Potassium 3.7 MMOL/L (3.5-5.1)
[2021-10-21 05:41] LABS: Band Neutrophils 1 % (0-10); Eosinophils 8 % (0-10); Lymphocytes 36 % (20-55); Microcytosis Slight; Ovalocytes Slight; Segmented Neutrophils 42 % (50-85); Total Cells Counted 100
[2021-10-21 05:42] LABS: Platelet Estimate Adequate
[2021-10-21] MEDS: INSULIN LISPRO 100 UNIT/ML SUBCUT SCH ×2 (08:00→14:39)
[2021-10-21] MEDS: PANTOPRAZOLE 40 MG TABLET PO SCH (09:32)
[2021-10-21] MEDS ORDERED: amLODIPine 5 MG TABLET PO SCH (11:30)
[2021-10-21 18:02] VITALS: BP 147/79
== END 2021-10-21 15:49 | disposition home or self-care (01) ==
LOC: N.ED 20:10 → SUATTDRO 22:38 → INTOOBSV 22:38 → N.EDINP 22:38 → N.CC 10-20 03:46 → N.TELES 10-20 17:11
PROVIDERS: ADMIT Internal Medicine; ATTEND Internal Medicine

== ENCOUNTER 2021-12-23 03:22 | Inpatient (IN) ==
[2021-12-23] MEDS ORDERED: ONDANSETRON 4 MG/2 ML VIAL IV STA (03:39)
[2021-12-23] MEDS ORDERED: ALUM/MAG/SIMETH/LIDO VISC 1:1 30 ML BOTTLE PO STA (03:39)
[2021-12-23] MEDS ORDERED: NITROGLYCERIN 2% OINT 1 INCH/GM PACK TOP STA (03:39)
[2021-12-23] MEDS ORDERED: MORPHINE 2 MG/1 ML SYRINGE IV STA (03:39)
[2021-12-23] MEDS ORDERED: ASPIRIN 325 MG TABLET PO STA (03:39)
[2021-12-23 04:00] LABS: Basophils % 0.4 % (0.0-0.8); Eosinophils % 0.8 % (0.00-10.9); Hemoglobin 10.2 GM/DL (12.0-16.0); Immature Granulocytes % 0.8 %; Immature Granulocytes Absolute 0.02 #; Lymphocytes # 0.3 10*3/uL (1.4-4.0); Lymphocytes % 12.4 % (21.3-54.2); Mean Corpuscular HGB Conc 30.9 GM/DL (32-36); Mean Corpuscular Volume 89.2 FL (87-102); Mean Platelet Volume 9.7 FL (9.6-12.0); Monocytes % 0.8 % (1.7-12.7); Neutrophils % 84.8 % (38.7-73.9); Platelet Count 167 T/CUMM (130-400); Red Cell Distribution Width 13.2 % (9.3-17.3); White Blood Count 2.5 T/CUMM (4-12)
[2021-12-23 04:20] LABS: Albumin 2.8 G/DL (3.4-5.0); Bilirubin,Total 2.1 MG/DL (0.20-1.00); Calcium 8.7 MG/DL (8.5-10.1); Osmolality,Calculated 298.7 MOS/KG (273-304); Potassium 3.4 MMOL/L (3.5-5.1); Total Protein 6.1 G/DL (6.4-8.2)
[2021-12-23] MEDS ORDERED: ALUMINUM/MAGNES/SIMETH MAX STR 30 ML UDCUP PO PRN (05:06)
[2021-12-23] MEDS ORDERED: ONDANSETRON 4 MG/2 ML VIAL IV PRN (05:06)
[2021-12-23] MEDS ORDERED: ACETAMINOPHEN 325 MG TABLET PO PRN (05:06)
[2021-12-23] MEDS ORDERED: GLUCAGON 1 MG VIAL IM PRN (05:06)
[2021-12-23] MEDS ORDERED: POTASSIUM CHLORIDE 20 MEQ TABLET PO STA (05:12)
[2021-12-23 05:33] LABS: Bilirubin,Direct 1.4 MG/DL (0.0-0.20); Bilirubin,Indirect 0.6 MG/DL (0.0-1.0)
[2021-12-23] MEDS ORDERED: DEXTROSE 10% 250 ML BAG IV PRN (05:42)
[2021-12-23 06:09] LABS: Hepatitis B Core IgM Quant < 0.05 Index; Hepatitis B Surface Ag Quant 0.12 Index; Hepatitis B Surface Ag Result Non-Reactive (NonReactive); Hepatitis C Virus Ab Quant 0.06 Index; Hepatitis C Virus Ab Result Non-Reactive (NonReactive)
[2021-12-23 06:10] LABS: Bacteria,Urine Many /HPF (Few); Mucus,Urine Moderate /LPF (Occasional); RBC,Urine 11 /HPF (0-4); Squamous Epithelial Cell,Urine Many /HPF (0-10); Urine Appearance CLOUDY (Clear); Urine Color Yellow (Yellow); Urine pH 5.5 (4.5-8.0)
[2021-12-23 06:11] LABS: Bilirubin,Urine Small mg/dL (Negative); Blood, Urine Trace mg/dL (Negative); Glucose,Urine (UA) 100 mg/dL (Negative); Ketones,Urine Trace mg/dL (Negative); Nitrite,Urine Negative (Negative); Protein,Urine 100 mg/dL (Negative); Urine Specific Gravity 1.025 (1.001-1.035)
[2021-12-23] MEDS: LACTATED RINGERS 1,000 ML IV SCH ×2 (06:26→16:18)
[2021-12-23] MEDS ORDERED: ENOXAPARIN 80 MG/0.8 ML SYRINGE SUBCUT SCH (07:00)
[2021-12-23] MEDS ORDERED: MAGNESIUM SULF RIDER 4 GM/100 ML PREMIX IV PRN (07:11)
[2021-12-23] MEDS ORDERED: POTASSIUM CHLORIDE RIDER 10 MEQ/100 ML PREMIX IV PRN (07:11)
[2021-12-23] MEDS ORDERED: MAGNESIUM SULF RIDER 2 GM/50 ML PREMIX IV PRN (07:11)
[2021-12-23 07:46] LABS: Risk Ratio 4.02; VLDL Cholesterol 16.8 MG/DL
[2021-12-23] MEDS: INSULIN REGULAR 100 UNIT/ML SUBCUT SCH ×4 (08:17→21:28)
[2021-12-23] MEDS: cefTRIAXone 1,000 MG in SODIUM CHLORIDE 0.9% 100 ML IV SCH (08:18)
[2021-12-23] MEDS: PANTOPRAZOLE 40 MG TABLET PO SCH (12:28)
[2021-12-23] MEDS: DOCUSATE SODIUM 100 MG CAPSULE PO SCH ×2 (12:28→21:22)
[2021-12-23] MEDS: carvediloL 3.125 MG TABLET PO SCH ×2 (12:28→21:22)
[2021-12-24 05:21] LABS: Basophils # 0.1 10*3/uL (0.0-0.2); Basophils % 0.2 % (0.0-0.8); Eosinophils % 0.1 % (0.00-10.9); Hematocrit 29.3 VOL% (35.7-47.0); Hemoglobin 8.9 GM/DL (12.0-16.0); Immature Granulocytes % 2.6 %; Immature Granulocytes Absolute 0.64 #; Lymphocytes # 1.6 10*3/uL (1.4-4.0); Lymphocytes % 6.6 % (21.3-54.2); Mean Corpuscular HGB Conc 30.4 GM/DL (32-36); Mean Corpuscular Volume 89.9 FL (87-102); Mean Platelet Volume 11.1 FL (9.6-12.0); Monocytes # 2.1 10*3/uL (0.11-0.8); Monocytes % 8.3 % (1.7-12.7); Neutrophils % 82.2 % (38.7-73.9); Platelet Count 149 T/CUMM (130-400); Red Blood Count 3.26 MC/CUMM (3.8-5.5); Red Cell Distribution Width 13.6 % (9.3-17.3); White Blood Count 24.9 T/CUMM (4-12)
[2021-12-24 05:42] LABS: Albumin 2.1 G/DL (3.4-5.0); Bilirubin,Total 1.9 MG/DL (0.20-1.00); Calcium 8.5 MG/DL (8.5-10.1); Osmolality,Calculated 285.1 MOS/KG (273-304); Potassium 3.5 MMOL/L (3.5-5.1); Total Protein 5.3 G/DL (6.4-8.2)
[2021-12-24 05:49] LABS: Band Neutrophils 1 % (0-10); Lymphocytes 8 % (20-55); Platelet Estimate Adequate; Total Cells Counted 100
[2021-12-24] MEDS: INSULIN REGULAR 100 UNIT/ML SUBCUT SCH ×4 (08:07→21:17)
[2021-12-24] MEDS: DOCUSATE SODIUM 100 MG CAPSULE PO SCH ×2 (09:58→21:16)
[2021-12-24] MEDS: PANTOPRAZOLE 40 MG TABLET PO SCH (09:59)
[2021-12-24] MEDS: FERROUS GLUCONATE 324 MG TABLET PO SCH (09:59)
[2021-12-24] MEDS: carvediloL 3.125 MG TABLET PO SCH ×2 (09:59→21:16)
[2021-12-24] MEDS: cefTRIAXone 1,000 MG in SODIUM CHLORIDE 0.9% 100 ML IV SCH (10:44)
[2021-12-24] MEDS: MULTIVITAMIN MINERALS LUTEIN PO SCH (10:52)
[2021-12-24] MEDS: DEXTROSE 5% NACL 0.9% 1,000 ML IV SCH (11:47)
[2021-12-24] MEDS: CEFEPIME 1,000 MG in SODIUM CHLORIDE 0.9% 100 ML IV SCH (17:24)
[2021-12-24] MEDS: metroNIDAZOLE INJ 500 MG/100 ML PREMIX IV SCH (18:35)
[2021-12-24] MEDS: ursodioL 300 MG CAPSULE PO SCH (21:16)
[2021-12-24] MEDS: MIRTAZAPINE 15 MG TABLET PO SCH (21:37)
[2021-12-25] MEDS: CEFEPIME 1,000 MG in SODIUM CHLORIDE 0.9% 100 ML IV SCH ×4 (00:53→22:04)
[2021-12-25] MEDS: metroNIDAZOLE INJ 500 MG/100 ML PREMIX IV SCH ×3 (00:54→17:17)
[2021-12-25] MEDS: DEXTROSE 5% NACL 0.9% 1,000 ML IV SCH ×3 (00:55→18:42)
[2021-12-25 05:27] LABS: Basophils # 0.1 10*3/uL (0.0-0.2); Basophils % 0.4 % (0.0-0.8); Eosinophils # 0.4 10*3/uL (0.0-0.87); Eosinophils % 2.5 % (0.00-10.9); Immature Granulocytes % 1.1 %; Immature Granulocytes Absolute 0.17 #; Lymphocytes # 1.6 10*3/uL (1.4-4.0); Lymphocytes % 10.3 % (21.3-54.2); Mean Corpuscular Volume 89.2 FL (87-102); Mean Platelet Volume 11.1 FL (9.6-12.0); Monocytes % 6.6 % (1.7-12.7); Neutrophils % 79.1 % (38.7-73.9); Platelet Count 172 T/CUMM (130-400); Red Blood Count 3.25 MC/CUMM (3.8-5.5); Red Cell Distribution Width 13.5 % (9.3-17.3); White Blood Count 15.1 T/CUMM (4-12)
[2021-12-25 05:35] LABS: Albumin 1.9 G/DL (3.4-5.0); Bilirubin,Total 0.6 MG/DL (0.20-1.00); Calcium 8.3 MG/DL (8.5-10.1); Osmolality,Calculated 298.7 MOS/KG (273-304); Potassium 3.2 MMOL/L (3.5-5.1); Total Protein 5.2 G/DL (6.4-8.2)
[2021-12-25 05:38] LABS: Anisocytosis 1+; Band Neutrophils 18 % (0-10); Eosinophils 4 % (0-10); Lymphocytes 9 % (20-55); Platelet Estimate Normal; Total Cells Counted 100
[2021-12-25] MEDS: DOCUSATE SODIUM 100 MG CAPSULE PO SCH ×2 (10:54→22:06)
[2021-12-25] MEDS: carvediloL 3.125 MG TABLET PO SCH ×2 (10:55→22:04)
[2021-12-25] MEDS: PANTOPRAZOLE 40 MG TABLET PO SCH (10:55)
[2021-12-25] MEDS: FERROUS GLUCONATE 324 MG TABLET PO SCH (10:55)
[2021-12-25] MEDS: ursodioL 300 MG CAPSULE PO SCH ×2 (10:55→22:03)
[2021-12-25] MEDS: INSULIN REGULAR 100 UNIT/ML SUBCUT SCH ×4 (10:56→22:03)
[2021-12-25] MEDS: MULTIVITAMIN MINERALS LUTEIN PO SCH (11:07)
[2021-12-25] MEDS: POTASSIUM CHLORIDE RIDER 10 MEQ/100 ML PREMIX IV SCH ×2 (12:56→14:31)
[2021-12-25] MEDS: FERROUS SULFATE 325 MG TABLET PO SCH (17:17)
[2021-12-25] MEDS: POTASSIUM CHLORIDE 10 MEQ TABLET PO SCH (22:06)
[2021-12-25] MEDS: MIRTAZAPINE 15 MG TABLET PO SCH (22:07)
[2021-12-26] MEDS: metroNIDAZOLE INJ 500 MG/100 ML PREMIX IV SCH ×2 (00:13→09:56)
[2021-12-26] MEDS: DEXTROSE 5% NACL 0.9% 1,000 ML IV SCH (03:49)
[2021-12-26 05:55] LABS: Basophils # 0.1 10*3/uL (0.0-0.2); Basophils % 0.5 % (0.0-0.8); Eosinophils # 0.3 10*3/uL (0.0-0.87); Eosinophils % 2.5 % (0.00-10.9); Hematocrit 30.6 VOL% (35.7-47.0); Hemoglobin 9.4 GM/DL (12.0-16.0); Immature Granulocytes % 0.6 %; Immature Granulocytes Absolute 0.06 #; Lymphocytes # 1.3 10*3/uL (1.4-4.0); Mean Corpuscular HGB Conc 30.7 GM/DL (32-36); Mean Platelet Volume 10.8 FL (9.6-12.0); Monocytes % 9.5 % (1.7-12.7); Neutrophils % 74.9 % (38.7-73.9); Platelet Count 199 T/CUMM (130-400); Red Blood Count 3.44 MC/CUMM (3.8-5.5); Red Cell Distribution Width 13.6 % (9.3-17.3); White Blood Count 10.4 T/CUMM (4-12)
[2021-12-26 06:09] LABS: Albumin 2.1 G/DL (3.4-5.0); Bilirubin,Total 0.6 MG/DL (0.20-1.00); Calcium 8.5 MG/DL (8.5-10.1); Osmolality,Calculated 295.3 MOS/KG (273-304); Potassium 3.4 MMOL/L (3.5-5.1); Total Protein 5.6 G/DL (6.4-8.2)
[2021-12-26] MEDS: CEFEPIME 1,000 MG in SODIUM CHLORIDE 0.9% 100 ML IV SCH (07:13)
[2021-12-26] MEDS: INSULIN REGULAR 100 UNIT/ML SUBCUT SCH ×2 (08:12→13:22)
[2021-12-26] MEDS ORDERED: POTASSIUM CHLORIDE 20 MEQ TABLET PO ONE (08:30)
[2021-12-26] MEDS: POTASSIUM CHLORIDE 10 MEQ TABLET PO SCH (09:55)
[2021-12-26] MEDS: DOCUSATE SODIUM 100 MG CAPSULE PO SCH (09:55)
[2021-12-26] MEDS: carvediloL 3.125 MG TABLET PO SCH (09:55)
[2021-12-26] MEDS: ursodioL 300 MG CAPSULE PO SCH (09:55)
[2021-12-26] MEDS: FERROUS SULFATE 325 MG TABLET PO SCH (09:55)
[2021-12-26] MEDS: PANTOPRAZOLE 40 MG TABLET PO SCH (09:55)
[2021-12-26] MEDS: MULTIVITAMIN MINERALS LUTEIN PO SCH (10:54)
[2021-12-26 13:18] VITALS: BP 140/65
== END 2021-12-26 13:50 | disposition home health service (06) | DRG 689 ==
LOC: EDBD → EDUNIT# → N.ED 03:22 → N.EDINP 03:22 → SUATTDRO 05:06 → OBSVTOIN 05:06 → N.EDINP 15:29 → N.TELES 17:18 → N.TELEN 12-25 09:57 → N.TELES 12-25 12:13
PROVIDERS: ADMIT Internal Medicine; ATTEND Hospitalist